=== PATIENT | female | born 1950 | race American Indian/Alaskan Native ===

== ENCOUNTER 2017-02-02 08:46 | Inpatient (IN) ==
[2017-02-02] MEDS ORDERED: Ipratropium/Albuterol Neb 3 ML IH ONE (08:53)
--- NOTE | 2017-02-02 08:54 | Emergency Department Note ---
Disposition Clinical Impression: Acute respiratory failure, Pleural effusion Disposition: Admitted As Inpatient Condition: Critical General Adult HPI - General Chief complaint: ED Shortness of Breath/Dyspnea Stated complaint: PRASHANT Time Seen by Provider: 02/02/17 08:52 - Related Data Home Medications Medication Instructions Recorded Confirmed Aspirin/Calcium Carbonate/Mag 325 mg PO DAILY 02/02/17 02/02/17 [Aspirin Buffered 325 mg Tab] GlipiZIDE [Glipizide] 10 mg PO BID 02/02/17 02/02/17 Lisinopril [Zestril] 10 mg PO DAILY 02/02/17 02/02/17 Metformin [Glucophage] 1,000 mg PO BID 02/02/17 02/02/17 Tramadol HCl [Ultram] 50 mg PO BID PRN 02/02/17 02/02/17 Allergies Allergy/AdvReac Type Severity Reaction Status Date / Time Rosiglitazone [From Avandia] Allergy Chest Pain Verified 02/02/17 09:08 Course Vital Signs Temperature 98.0 F 02/02/17 08:53 Pulse Rate 125 02/02/17 08:53 Respiratory Rate 28 02/02/17 08:53 Blood Pressure 144/95 02/02/17 08:53 O2 Sat by Pulse Oximetry 96 02/02/17 08:53 Temperature 98.0 F 02/02/17 08:53 Pulse Rate 114 02/02/17 11:38 Respiratory Rate 19 02/02/17 11:50 Blood Pressure 142/92 02/02/17 11:50 O2 Sat by Pulse Oximetry 94 L 02/02/17 11:38 Oxygen Delivery Oxygen Delivery Nasal Cannula Medical Decision Making - Lab Data Result diagrams: 02/02/17 09:27 02/02/17 09:27 Lab Results 02/02/17 02/02/17 02/02/17 Range/Units 09:27 09:27 09:27 WBC 11.9 H (4.3-11.1) K/mcL RBC 4.62 (3.82-4.97) M/mcL Hgb 14.1 (11.5-15.4) g/dL Hct 44.6 (35.3-44.9) % MCV 96.5 (83.0-100.0) fL MCH 30.5 (28.0-33.3) pg MCHC 31.6 (31.6-35.5) g/dL RDW 13.2 (11.5-14.5) % Plt Count 290 (140-400) K/mcL MPV 11.1 (9.4-12.4) fL Immature Gran % 0.4 (0-4) % Seg Neutrophils % 67.4 % Lymphocytes % 21.4 % Monocytes % 9.2 % Eosinophils % 0.8 % Basophils % 0.8 % Neutrophils # 8.0 (1.6-8.9) K/mcL Lymphocytes # 2.5 (0.6-4.6) K/mcL Monocytes # 1.1 (0.0-1.3) K/mcL Eosinophils # 0.1 (0.0-0.6) K/mcL Basophils # 0.1 (0.0-0.2) K/mcL PT 11.3 (9.4-12.1) Seconds INR 1.0 Sodium 139 (136-145) mEq/L Potassium 4.3 (3.5-4.5) mEq/L Chloride 99 (98-109) mEq/L Carbon Dioxide 26 (19-29) mEq/L BUN 7 (7-20) mg/dL Creatinine 0.71 (0.57-1.11) mg/dL Est GFR ( Amer) > 60 (> 60) Est GFR (Non-Af Amer) > 60 (> 60) BUN/Creatinine Ratio 10 (6-26) Glucose 291 H (70-99) mg/dL Calculated Osmolality 297 (280-300) Calcium 8.8 (8.6-10.8) mg/dL Total Bilirubin 0.6 (0.2-1.2) mg/dL AST 16 (5-34) Units/L ALT 13 (0-55) Units/L Alkaline Phosphatase 94 (38-126) Units/L Troponin I (0-0.03) ng/mL B-Natriuretic Peptide (0-100) pg/mL Serum Total Protein 8.2 (6.0-8.3) g/dL Albumin 3.3 L (3.5-5.0) g/dL Globulin 4.9 H (2.4-3.5) g/dL Albumin/Globulin Ratio 0.7 L (1.1-2.2) 02/02/17 02/02/17 Range/Units 09:27 09:27 WBC (4.3-11.1) K/mcL RBC (3.82-4.97) M/mcL Hgb (11.5-15.4) g/dL Hct (35.3-44.9) % MCV (83.0-100.0) fL MCH (28.0-33.3) pg MCHC (31.6-35.5) g/dL RDW (11.5-14.5) % Plt Count (140-400) K/mcL MPV (9.4-12.4) fL Immature Gran % (0-4) % Seg Neutrophils % % Lymphocytes % % Monocytes % % Eosinophils % % Basophils % % Neutrophils # (1.6-8.9) K/mcL Lymphocytes # (0.6-4.6) K/mcL Monocytes # (0.0-1.3) K/mcL Eosinophils # (0.0-0.6) K/mcL Basophils # (0.0-0.2) K/mcL PT (9.4-12.1) Seconds INR Sodium (136-145) mEq/L Potassium (3.5-4.5) mEq/L Chloride (98-109) mEq/L Carbon Dioxide (19-29) mEq/L BUN (7-20) mg/dL Creatinine (0.57-1.11) mg/dL Est GFR ( Amer) (> 60) Est GFR (Non-Af Amer) (> 60) BUN/Creatinine Ratio (6-26) Glucose (70-99) mg/dL Calculated Osmolality (280-300) Calcium (8.6-10.8) mg/dL Total Bilirubin (0.2-1.2) mg/dL AST (5-34) Units/L ALT (0-55) Units/L Alkaline Phosphatase (38-126) Units/L Troponin I 0.01 (0-0.03) ng/mL B-Natriuretic Peptide 98 (0-100) pg/mL Serum Total Protein (6.0-8.3) g/dL Albumin (3.5-5.0) g/dL Globulin (2.4-3.5) g/dL Albumin/Globulin Ratio (1.1-2.2) Critical Care Time Critical Care Time: Yes Total Critical Care Time: 45 Attestation: Patient presents dyspneic requiring IV nitroglycerin drip and BiPAP. Attestation Statement - Attestation Attestation: I examined this patient and my medical decision-making was reviewed with the OBJECT ORIENTED PROGRAMMER/PA/Advanced Practice Nurse/Resident Physician. I agree with the documented findings, disposition and treatment plan as described except to the extent set forth below. [id number] time provided Patient presents with increasing exertional and nonexertional dyspnea over the past 3 days. Nonproductive cough. No chest pain. No previous history of respiratory symptoms. The patient is visibly dyspneic, tachycardic, tachypneic on exam. Pulse ox in the mid 80s. Patient seen and evaluated in conjunction with the resident physician Dr. Rios
--- NOTE | 2017-02-02 09:02 | Emergency Department Note ---
Disposition Clinical Impression: Pleural effusion Acute respiratory failure Qualifiers: Respiratory failure complication: unspecified whether with hypoxia or hypercapnia Qualified Code(s): J96.00 - Acute respiratory failure, unspecified whether with hypoxia or hypercapnia Disposition: Admitted As Inpatient Condition: Critical SOB HPI - General Chief Complaint: ED Shortness of Breath/Dyspnea Stated Complaint: PRASHANT Time Seen by Provider: 02/02/17 08:52 Nursing Notes Reviewed: Yes Vital Signs Reviewed: Yes - History of Present Illness Mrs. Swenson, 66-year-old female, presents from home via EMS with chief complaint difficulty breathing. Onset 4 days ago and progressively worsening. Admits to nonproductive cough. Denies fever, chills, nausea, vomiting, productive cough. Denies any chest pain. PMH: Diabetes, hypertension. Remote breast cancer. Denies history of congestive heart failure. PSH: Right complete mastectomy. PCP: Dr. Diane - Related Data Home Medications Medication Instructions Recorded Confirmed Aspirin/Calcium Carbonate/Mag 325 mg PO DAILY 02/02/17 02/02/17 [Aspirin Buffered 325 mg Tab] GlipiZIDE [Glipizide] 10 mg PO BID 02/02/17 02/02/17 Lisinopril [Zestril] 10 mg PO DAILY 02/02/17 02/02/17 Metformin [Glucophage] 1,000 mg PO BID 02/02/17 02/02/17 Tramadol HCl [Ultram] 50 mg PO BID PRN 02/02/17 02/02/17 Allergies Allergy/AdvReac Type Severity Reaction Status Date / Time Rosiglitazone [From Avandia] Allergy Chest Pain Verified 02/02/17 09:08 All systems ED: reviewed and negative except as stated. Constitutional: Reports: weakness. Denies: fever, chills Cardiovascular: Denies: chest pain, palpitations Respiratory: Reports: cough, dyspnea. Denies: wheezes, hemoptysis, stridor Gastrointestinal: Denies: abdominal pain, nausea, vomiting, diarrhea Genitourinary: Denies: urgency, dysuria, frequency Musculoskeletal: Denies: back pain, neck pain Neurological: Reports: weakness. Denies: headache, numbness, paresthesias Physical Exam General: Patient is alert, oriented, and in acute rest for distress. She is single word conversational dyspnea with accessory muscle use and head bobbing. HEENT: No facial asymmetry. Head is normocephalic and atraumatic. PERRLA. Trachea midline. Cardiovascular: Heart regular rate and rhythm without clicks, rubs, gallops, or murmurs. No JVD. PMI nondisplaced. 1+ bilateral pitting edema. Respiratory: Symmetric chest rise with good respiratory effort. Bilateral breath sounds are rhonchorous without wheezing or crackles. Abdomen: Obese. Bowel sounds present normoactive x-4 quadrants. Abdomen is soft, nondistended, and nontender. Psych: Patient's affect is appropriate for situation. Course Course Narrative: Patient has no history of congestive heart failure, CAD, ACS, CAD, COPD. Differential includes PE versus pneumonia versus congestive heart failure versus COPD. Initially placed her on 4 L via nasal cannula. She remained tachycardic and a restaurant stress. Will place her on BiPAP and provide IV nitro drip and reassess. Patient's lab work is unremarkable; she does have mild leukocytosis however I believe this to be a stress response. Troponin and BNP are unremarkable. Chest x-ray concerning for pulmonary edema versus atypical pneumonia. The patient tolerated BiPAP quite well. Her work of breathing has improved substantially with BiPAP and nitroglycerin. Discussed the patient, her , and daughter at bedside for admission for continued respiratory management continue workup. They agreed. Spoke with the hospitalist, , who agrees to accept the patient. CTA chest does not show PE but is concerning for pulmonary effusion likely secondary to CHF. Chest CTA 02/02/17 08:53 IMPRESSION: 1. No evidence of pulmonary embolism. 2. Findings consistent with pulmonary edema. Moderate right and small left pleural effusions. D/ / 02/02/2017 11:38:34 Fior Olson MD / Rebecca Suarez Interpreting Provider: Fior Olson MD Chest X-Ray 02/02/17 08:53 IMPRESSION: Diffuse bilateral interstitial and airspace opacities. Findings could reflect pulmonary edema and/or atypical pneumonia. D/ / 02/02/2017 10:07:04 Fior Olson MD / Rebecca Suarez Interpreting Provider: Fior Olson MD Vital Signs Temperature 98.0 F 02/02/17 08:53 Pulse Rate 125 02/02/17 08:53 Respiratory Rate 28 02/02/17 08:53 Blood Pressure 144/95 02/02/17 08:53 O2 Sat by Pulse Oximetry 96 02/02/17 08:53 Temperature 98.0 F 02/02/17 08:53 Pulse Rate 114 02/02/17 11:38 Respiratory Rate 19 02/02/17 11:50 Blood Pressure 142/92 02/02/17 11:50 O2 Sat by Pulse Oximetry 94 L 02/02/17 11:38 Oxygen Delivery Oxygen Delivery Nasal Cannula Shortness of Breath/Dyspnea - Medical Records Medical records reviewed: Yes I reviewed the patient's medical records. - Lab Data Lab results reviewed: Yes I reviewed the patient's lab results. Result diagrams: 02/02/17 09:27 02/02/17 09:27 Lab Results 02/02/17 02/02/17 02/02/17 Range/Units 09:27 09:27 09:27 WBC 11.9 H (4.3-11.1) K/mcL RBC 4.62 (3.82-4.97) M/mcL Hgb 14.1 (11.5-15.4) g/dL Hct 44.6 (35.3-44.9) % MCV 96.5 (83.0-100.0) fL MCH 30.5 (28.0-33.3) pg MCHC 31.6 (31.6-35.5) g/dL RDW 13.2 (11.5-14.5) % Plt Count 290 (140-400) K/mcL MPV 11.1 (9.4-12.4) fL Immature Gran % 0.4 (0-4) % Seg Neutrophils % 67.4 % Lymphocytes % 21.4 % Monocytes % 9.2 % Eosinophils % 0.8 % Basophils % 0.8 % Neutrophils # 8.0 (1.6-8.9) K/mcL Lymphocytes # 2.5 (0.6-4.6) K/mcL Monocytes # 1.1 (0.0-1.3) K/mcL Eosinophils # 0.1 (0.0-0.6) K/mcL Basophils # 0.1 (0.0-0.2) K/mcL PT 11.3 (9.4-12.1) Seconds INR 1.0 Sodium 139 (136-145) mEq/L Potassium 4.3 (3.5-4.5) mEq/L Chloride 99 (98-109) mEq/L Carbon Dioxide 26 (19-29) mEq/L BUN 7 (7-20) mg/dL Creatinine 0.71 (0.57-1.11) mg/dL Est GFR ( Amer) > 60 (> 60) Est GFR (Non-Af Amer) > 60 (> 60) BUN/Creatinine Ratio 10 (6-26) Glucose 291 H (70-99) mg/dL Calculated Osmolality 297 (280-300) Calcium 8.8 (8.6-10.8) mg/dL Total Bilirubin 0.6 (0.2-1.2) mg/dL AST 16 (5-34) Units/L ALT 13 (0-55) Units/L Alkaline Phosphatase 94 (38-126) Units/L Troponin I (0-0.03) ng/mL B-Natriuretic Peptide (0-100) pg/mL Serum Total Protein 8.2 (6.0-8.3) g/dL Albumin 3.3 L (3.5-5.0) g/dL Globulin 4.9 H (2.4-3.5) g/dL Albumin/Globulin Ratio 0.7 L (1.1-2.2) 02/02/17 02/02/17 Range/Units 09:27 09:27 WBC (4.3-11.1) K/mcL RBC (3.82-4.97) M/mcL Hgb (11.5-15.4) g/dL Hct (35.3-44.9) % MCV (83.0-100.0) fL MCH (28.0-33.3) pg MCHC (31.6-35.5) g/dL RDW (11.5-14.5) % Plt Count (140-400) K/mcL MPV (9.4-12.4) fL Immature Gran % (0-4) % Seg Neutrophils % % Lymphocytes % % Monocytes % % Eosinophils % % Basophils % % Neutrophils # (1.6-8.9) K/mcL Lymphocytes # (0.6-4.6) K/mcL Monocytes # (0.0-1.3) K/mcL Eosinophils # (0.0-0.6) K/mcL Basophils # (0.0-0.2) K/mcL PT (9.4-12.1) Seconds INR Sodium (136-145) mEq/L Potassium (3.5-4.5) mEq/L Chloride (98-109) mEq/L Carbon Dioxide (19-29) mEq/L BUN (7-20) mg/dL Creatinine (0.57-1.11) mg/dL Est GFR ( Amer) (> 60) Est GFR (Non-Af Amer) (> 60) BUN/Creatinine Ratio (6-26) Glucose (70-99) mg/dL Calculated Osmolality (280-300) Calcium (8.6-10.8) mg/dL Total Bilirubin (0.2-1.2) mg/dL AST (5-34) Units/L ALT (0-55) Units/L Alkaline Phosphatase (38-126) Units/L Troponin I 0.01 (0-0.03) ng/mL B-Natriuretic Peptide 98 (0-100) pg/mL Serum Total Protein (6.0-8.3) g/dL Albumin (3.5-5.0) g/dL Globulin (2.4-3.5) g/dL Albumin/Globulin Ratio (1.1-2.2) - Radiology Data Radiology results reviewed: Yes I reviewed the patient's radiology results. - EKG Data EKG attestation: Yes I reviewed and interpreted this EKG. EKG results narrative: EKG dated 02 February at 09:01 interpreted as sinus tachycardia with a rate of 120. Normal intervals KS 172, QRS 109, QT/QTC 314/86. Left axis. Left anterior fascicular block. Nonspecific ST-T changes. No old EKG for comparison.
[2017-02-02] MEDS ORDERED: Nitroglycerin 25 MG/250 ML INFUS..BTL IVC ONE (09:03)
[2017-02-02] MEDS ORDERED: Furosemide 40 MG/4 ML VIAL IVP ONE (09:04)
[2017-02-02] MEDS ORDERED: Nitroglycerin 25 MG/250 ML INFUS..BTL IVC SCH (09:15)
[2017-02-02 09:36] LABS: Basophils # 0.1 K/mcL (0.0-0.2); Basophils % 0.8 %; Eosinophils # 0.1 K/mcL (0.0-0.6); Eosinophils % 0.8 %; Hematocrit 44.6 % (35.3-44.9); Hemoglobin 14.1 g/dL (11.5-15.4); Immature Granulocytes % 0.4 % (0-4); Lymphocytes # 2.5 K/mcL (0.6-4.6); Lymphocytes % 21.4 %; Mean Corpuscular HGB Conc 31.6 g/dL (31.6-35.5); Mean Corpuscular Hemoglobin 30.5 pg (28.0-33.3); Mean Corpuscular Volume 96.5 fL (83.0-100.0); Mean Platelet Volume 11.1 fL (9.4-12.4); Monocytes # 1.1 K/mcL (0.0-1.3); Monocytes % 9.2 %; Platelet Count 290 K/mcL (140-400); Red Blood Count 4.62 M/mcL (3.82-4.97); Red Cell Distribution Width 13.2 % (11.5-14.5); Segmented Neutrophils % 67.4 %
[2017-02-02 09:42] LABS: Prothrombin Time 11.3 Seconds (9.4-12.1)
[2017-02-02 09:50] LABS: Alanine Aminotransferase 13 Units/L (0-55); Albumin 3.3 g/dL (3.5-5.0); Albumin/Globulin Ratio 0.7 (1.1-2.2); Alkaline Phosphatase 94 Units/L (38-126); Aspartate Amino Transferase 16 Units/L (5-34); BUN/Creatinine Ratio 10 (6-26); Bilirubin,Total 0.6 mg/dL (0.2-1.2); Blood Urea Nitrogen 7 mg/dL (7-20); Calcium 8.8 mg/dL (8.6-10.8); Carbon Dioxide 26 mEq/L (19-29); Chloride 99 mEq/L (98-109); Globulin 4.9 g/dL (2.4-3.5); Glucose 291 mg/dL (70-99); Osmolality,Calculated 297 (280-300); Potassium 4.3 mEq/L (3.5-4.5); Sodium 139 mEq/L (136-145); Total Protein 8.2 g/dL (6.0-8.3); eGFR For African Americans > 60 (> 60); eGFR For Non-African Americans > 60 (> 60)
[2017-02-02] MEDS ORDERED: Naloxone 0.4 MG/ML INJ IVP PRN (12:16)
[2017-02-02] MEDS ORDERED: *HR* Morphine 2 MG/ML SYRINGE IVP PRN (12:16)
[2017-02-02] MEDS ORDERED: D5% in Water 1,000 ML IV PRN (12:30)
[2017-02-02] MEDS ORDERED: Dextrose Gel 15 GM PO PRN ×2 (12:30)
[2017-02-02] MEDS ORDERED: *HR* Dextrose 50 % in Water (Syg) 50 ML SYRINGE IVP PRN (12:30)
--- NOTE | 2017-02-02 12:34 | Internal Med History&Physical ---
Date of Encounter: 02/04/17 Time of Encounter: 12:33 Assessment and Plan (1) Acute respiratory failure Current visit: Yes Status: Acute Patient is in acute respiratory failure likely hypoxic: -Admitted as an inpatient -Intravenous furosemide 40 mg twice a day. Patient has a bilateral pleural effusion, elevated JVP, pedal edema, near-normal albumin: Justifies intravenous diuretics. -In the event if she worsens clinically, consider BiPAP -Blood cultures. -Intravenous levofloxacin: To cover atypicals which can be precipitating factor for congestive heart failure. -Close monitoring -Echocardiogram: To assess cardiac function, possibility of generalized/global hypokinesia: If it is present then consider myocarditis: We will get serial troponins -Diabetes: We will start home dose insulin, sliding scale and diabetes protocol -DVT prophylaxis: SCD Medical decision making: This patient has mild to moderate chance of worsening respiratory failure in spite of appropriate treatment. Qualifiers: Respiratory failure complication: unspecified whether with hypoxia or hypercapnia Qualified Code(s): J96.00 - Acute respiratory failure, unspecified whether with hypoxia or hypercapnia (2) Pleural effusion Current visit: Yes Status: Acute Etiology can be multifactorial: May need a interventional radiology to aspirate the effusion tomorrow Internal Medicine - H&P: HPI Chief complaint: SOB Admitted From: Emergency Dept Plans for Post Hospital Care: Home History of present illness: PCP: Dr Diane from [facility]. Brief PMH: Diabetes, hypertension. HPI: Mrs. Swenson, 66-year-old female, presents from home via EMS with chief complaint difficulty breathing. Onset 4 days ago and progressively worsening. Admits to nonproductive cough. Denies fever, chills, nausea, vomiting, productive cough. Denies any chest pain. No ongoing difficulty of breathing along with worsening cough and change in color of sputum made her call squad. The squad brought her to this hospital for further evaluation. Workup in the emergency room: Basic labs were drawn, chest x-ray was done. Chest x-ray showed vascular congestion. There is a mild leukocytosis. CTA was done and pulmonary embolism was ruled out. Reason for admission: Possible acute worsening congestive heart failure secondary to underlying infection. Patient needs intravenous antibiotics and close observation in view of possible BiPAP/intubation. This cannot be managed at home. Family history: Noncontributory Past Med Surg Social Fam HX - Past Medical History Medical history: diabetes, hypertension Psychiatric history: no psych history - Social History Smoking Status: Former smoker Smokeless Tobacco Status: No Alcohol use: none Drug use: none - Family History Mother Name: Maxwell Alicia Family Member Ethnicity: Non- Living Status: Age at : 86 Cause of : Cancer Hx Family Cardiac Disorders: Yes (CABG) Hx Family Cancer: Yes (UNKNOWN) Hx Family Endocrine Disorder: Yes (DIABETES) Internal Medicine - H&P: Meds Aspirin/Calcium Carbonate/Mag [Aspirin Buffered 325 mg Tab] 325 mg PO DAILY 04/16 [History] GlipiZIDE [Glipizide] 10 mg PO BID 02/02/17 [History] Lisinopril [Zestril] 10 mg PO DAILY 02/02/17 [History] Metformin [Glucophage] 1,000 mg PO BID 02/02/17 [History] Tramadol HCl [Ultram] 50 mg PO BID PRN 02/02/17 [History] Allergies Rosiglitazone [From Avandia] Allergy (Verified 02/02/17 09:08) Chest Pain All Systems PM: A 10-system review of systems was performed and is negative for pertinent findings except as documented above in the HPI. - Constitutional Constitutional: lethargy, malaise, weakness, no chills, no fever(s), no night sweats - EENT Eyes: no change in vision, no discharge, no pain, no photophobia Ears: no ear discharge, no ear pain, no tinnitus Nose, mouth and throat: no dysphagia, no nasal discharge, no neck pain, no sore throat - Cardiovascular Cardiovascular ROS IM: no chest pain, no diaphoresis, no dyspnea, no lightheadedness, no palpitations, no syncope - Respiratory Respiratory: cough, dyspnea, wheezing, excessive phlegm production, change in phlegm color - Gastrointestinal Gastrointestinal: no abdominal pain, no diarrhea, no hematemesis, no hematochezia, no melena, no nausea, no vomiting - Genitourinary Genitourinary: no change in urinary stream, no dysuria, no flank pain, no hematuria - Musculoskeletal Musculoskeletal ROS IM: no numbness, no tingling - Integumentary Integumentary IM: no rash, no unusual bruising - Neurological Neurological ROS: no confusion, no convulsions, no focal weakness, no numbness, no tingling, no tremor(s) - Hematologic/Lymphatic Hematologic/Lymphatic: no easy bruising - Constitutional Vitals: Temp Pulse Resp BP Pulse Ox 98.0 F 114 19 142/92 94 L 02/02/17 08:53 02/02/17 11:38 02/02/17 11:50 02/02/17 11:50 02/02/17 11:38 General appearance: Present: mild distress, A&O X 3, pleasant, answers questions appropriately - Head Head exam: Present: atraumatic, normocephalic - Eye Eye exam: Present: PERRL, conjuntiva pink, sclera anicteric Pupils: Present: PERRL - Neck Neck exam general surgery: Present: supple, trachea midline. Absent: lymphadenopathy - Respiratory Respiratory exam: Present: CTAB, rales, rhonchi, wheezes. Absent: accessory muscle use - Cardiovascular Cardiovascular exam: Present: RRR, +S1, +S2. Absent: diastolic murmur, gallop, rubs, systolic murmur - GI/Abdominal GI/Abdominal exam: Present: normal bowel sounds, soft, no peritoneal signs. Absent: distended, tenderness - Extremities Exam Extremities exam: Present: warm, radial pulses palpable and symetrical. Absent : calf tenderness, cyanotic, pedal edema - Neurological Exam Neurological exam: Present: CN II-XII intact, oriented X3, no focal deficits. Absent: pronater drift, facial droop, speech deficit - Skin Skin exam: Present: dry, intact Internal Med - H&P Results - Labs CBC & Chem 7: 02/04/17 07:30 02/04/17 07:30
[2017-02-02] MEDS ORDERED: Insulin LISPRO 300 UNITS/3 ML VIAL SQ SCH ×3 (13:05→16:30)
[2017-02-02] MEDS: Insulin LISPRO 300 UNITS/3 ML VIAL SQ SCH ×3 (13:45→22:41)
[2017-02-02] MEDS: Levofloxacin 750 MG/150 ML 750 MG/150 ML BAG IVPB SCH (15:12)
[2017-02-02] MEDS: Furosemide 40 MG/4 ML VIAL IVP SCH (17:28)
[2017-02-02 20:57] LABS: Bilirubin,Urine Negative (Negative); Blood,Urine Negative (Negative); Clarity,Urine Clear (Clear); Color,Urine Yellow (Yellow); Glucose,Urine (UA) Normal (Normal); Ketones,Urine Negative (Negative); Leukocyte Esterase,Urine Small (Negative); Nitrite,Urine Negative (Negative); Protein,Urine Negative (Neg-Trace); Specific Gravity,Urine 1.013 (1.010-1.025); Urobilinogen,Urine Normal (Normal)
[2017-02-02 20:59] LABS: Bacteria,Urine None Seen per hpf (None-Few); Hyaline Casts,Urine None Seen per lpf (None-Few); RBC,Urine 0-3 per hpf (0-3); Squamous Epithelial Cell,Urine Many per lpf (None-Few)
[2017-02-02] MEDS: *HR* GlipiZIDE 5 MG TABLET PO SCH (22:41)
[2017-02-03 07:50] LABS: Basophils # 0.1 K/mcL (0.0-0.2); Basophils % 0.7 %; Eosinophils # 0.1 K/mcL (0.0-0.6); Eosinophils % 1.2 %; Hemoglobin 12.7 g/dL (11.5-15.4); Immature Granulocytes % 0.4 % (0-4); Lymphocytes # 1.7 K/mcL (0.6-4.6); Lymphocytes % 20.3 %; Mean Corpuscular HGB Conc 33.4 g/dL (31.6-35.5); Mean Corpuscular Hemoglobin 31.8 pg (28.0-33.3); Mean Platelet Volume 11.5 fL (9.4-12.4); Monocytes # 0.7 K/mcL (0.0-1.3); Monocytes % 8.6 %; Neutrophils # 5.9 K/mcL (1.6-8.9); Platelet Count 250 K/mcL (140-400); Red Cell Distribution Width 13.3 % (11.5-14.5); Segmented Neutrophils % 68.8 %
[2017-02-03 08:13] LABS: Alanine Aminotransferase 9 Units/L (0-55); Albumin 2.8 g/dL (3.5-5.0); Albumin/Globulin Ratio 0.7 (1.1-2.2); Alkaline Phosphatase 69 Units/L (38-126); Aspartate Amino Transferase 18 Units/L (5-34); BUN/Creatinine Ratio 11 (6-26); Bilirubin,Total 0.8 mg/dL (0.2-1.2); Blood Urea Nitrogen 7 mg/dL (7-20); Calcium 8.1 mg/dL (8.6-10.8); Carbon Dioxide 29 mEq/L (19-29); Chloride 99 mEq/L (98-109); Chol/HDL Ratio 3.2 (0-4.9); Cholesterol 194 mg/dL (< 200); Globulin 4.1 g/dL (2.4-3.5); Glucose 167 mg/dL (70-99); HDL Cholesterol 60 mg/dL (40-59); LDL Cholesterol,Calculated 120 mg/dL (0-99); Magnesium 0.9 mg/dL (1.6-2.6); Osmolality,Calculated 290 (280-300); Potassium 3.6 mEq/L (3.5-4.5); Sodium 139 mEq/L (136-145); Total Protein 6.9 g/dL (6.0-8.3); Triglycerides 72 mg/dL (< 150); eGFR For African Americans > 60 (> 60); eGFR For Non-African Americans > 60 (> 60)
[2017-02-03] MEDS ORDERED: Magnesium Sulfate 2 GM in D5% in Water 100 ML IVPB ONE (08:29)
--- NOTE | 2017-02-03 08:51 | Internal Med Progress Note ---
<PacoDarian arnold - Last Filed: 02/03/17 09:24> Date of Encounter: 02/03/17 Time of Encounter: 08:45 - Assessment and plan (1) Acute respiratory failure Current Visit: Yes Status: Acute Assessment and plan: Patient appears to be doing better this morning. She is not currently oxygen dependent. DDx includes possible acute CHF, recurrent malignancy, infection CTA negative for PE, but showed moderate right and small left pleural effusions , pulmonary vascular congestion. CXR: diffuse bilateral interstitial airspace opacities, concern for pulmonary edema vs. atypical pneumonia. Plan: Blood cultures x2 pending. Oxygen as needed. EV echo pending continue lasix 40mg BID strict I/O BiPAP if clinical condition worsens. Levaquin day 1 Qualifiers: Respiratory failure complication: unspecified whether with hypoxia or hypercapnia Qualified Code(s): J96.00 - Acute respiratory failure, unspecified whether with hypoxia or hypercapnia (2) Pleural effusion Current Visit: Yes Status: Acute Assessment and plan: plan as above. (3) Diabetes Current Visit: Yes Status: Acute Assessment and plan: holding metformin and glipizide. Medium dose sliding scale insulin ACHS accuchecks. ADA diet. Qualifiers: Diabetes mellitus type: type 2 Diabetes mellitus complication status: with unspecified complications Diabetes mellitus assistant terminal manager insulin use: unspecified fci insulin use status Qualified Code(s): E11.8 - Type 2 diabetes mellitus with unspecified complications (4) Hypertension Current Visit: Yes Status: Acute Assessment and plan: Continue home med lisinopril, Qualifiers: Hypertension type: essential hypertension Qualified Code(s): I10 - Essential (primary) hypertension (5) Hx of breast cancer Current Visit: Yes Status: Acute Assessment and plan: S/P right mastectomy about 20 years ago. Patient had also received clifton-adjuvant chemotherapy as well. Patient states that ever since her surgery and chemo, she chose not to follow up with her oncologist or get mammograms. concern for possible recurrent/metastatic disease. continue to monitor. (6) DVT prophylaxis Current Visit: Yes Status: Acute Assessment and plan: Heparin SQ BID - Subjective Interval history: 66 year old female evaluated at bedside. She was comfortably sitting up in bed without oxygen on and eating her breakfast. Patient denies nausea, vomiting, diarrhea, fever, chills, shortness of breath. She denies dizziness. - Constitutional Vitals: Temp Pulse Resp BP Pulse Ox 98.3 F 112 16 122/70 95 02/03/17 05:11 02/03/17 05:11 02/03/17 05:11 02/03/17 05:11 02/03/17 05:11 General appearance: Present: A&O X 3, pleasant, answers questions appropriately - Head Head exam: Present: atraumatic, normocephalic - Neck Neck exam general surgery: Present: supple, trachea midline - Respiratory Respiratory exam: Present: rales Additional comments: rales present on lower lobes bilaterally - Cardiovascular Cardiovascular exam: Present: JVD, tachycardia - GI/Abdominal GI/Abdominal exam: Present: normal bowel sounds. Absent: guarding, tenderness Additional comments: obese, striae present. normal bowel sounds, non tender. - Extremities Exam Extremities exam: Present: warm. Absent: cyanotic Additional comments: trace edema present on lower extremities bilaterally. - Neurological Exam Neurological exam: Present: alert, oriented X3, no focal deficits. Absent: facial droop, speech deficit - Other Additional findings: right breast surgically removed from mastectomy 20 years ago. Internal Medicine: Result - Labs CBC & Chem 7: 02/03/17 06:42 02/03/17 06:42 Labs: Short CBC 02/03/17 Range/Units 06:42 WBC 8.6 (4.3-11.1) K/mcL Hgb 12.7 (11.5-15.4) g/dL Hct 38.0 (35.3-44.9) % Plt Count 250 (140-400) K/mcL Neutrophils # 5.9 (1.6-8.9) K/mcL BMP 02/03/17 06:42 Sodium 139 Potassium 3.6 Chloride 99 Carbon Dioxide 29 BUN 7 Creatinine 0.64 Glucose 167 H Calcium 8.1 L Cardiac Enzymes 02/02/17 02/02/17 Range/Units 16:02 22:05 Troponin I 0.03 0.03 (0-0.03) ng/mL Liver Function 02/03/17 Range/Units 06:42 Total Bilirubin 0.8 (0.2-1.2) mg/dL AST 18 (5-34) Units/L ALT 9 (0-55) Units/L Alkaline Phosphatase 69 (38-126) Units/L Albumin 2.8 L (3.5-5.0) g/dL Urine 02/02/17 Range/Units 20:37 Urine Color Yellow (Yellow) Urine Clarity Clear (Clear) Urine pH 7.0 (5.0-8.0) pH Units Ur Specific [place] 1.013 (1.010-1.025) Urine Protein Negative (Neg-Trace) mg/dL Urine Glucose (UA) Normal (Normal) mg/dL - ABG Interpretation ABG results: PT/INR, D-dimer PT 11.3 Seconds (9.4-12.1) 02/02/17 09:27 - VTE Documentation of Mechanical Device: Intermittent pneumatic compression device Consult Discharge Plan - Plan Referrals: Dawson Diane DO [Primary Care Provider] - <Devyn Sánchez H - Last Filed: 02/03/17 14:46> Date of Encounter: 02/03/17 - Constitutional Vitals: Temp Pulse Resp BP Pulse Ox 97.6 F 112 16 99/61 95 02/03/17 12:48 02/03/17 12:48 02/03/17 12:48 02/03/17 12:48 02/03/17 12:48 Internal Medicine: Result - Labs CBC & Chem 7: 02/03/17 06:42 02/03/17 06:42 Labs: Short CBC 02/03/17 Range/Units 06:42 WBC 8.6 (4.3-11.1) K/mcL Hgb 12.7 (11.5-15.4) g/dL Hct 38.0 (35.3-44.9) % Plt Count 250 (140-400) K/mcL Neutrophils # 5.9 (1.6-8.9) K/mcL BMP 02/03/17 06:42 Sodium 139 Potassium 3.6 Chloride 99 Carbon Dioxide 29 BUN 7 Creatinine 0.64 Glucose 167 H Calcium 8.1 L Cardiac Enzymes 02/02/17 02/02/17 Range/Units 16:02 22:05 Troponin I 0.03 0.03 (0-0.03) ng/mL Liver Function 02/03/17 Range/Units 06:42 Total Bilirubin 0.8 (0.2-1.2) mg/dL AST 18 (5-34) Units/L ALT 9 (0-55) Units/L Alkaline Phosphatase 69 (38-126) Units/L Albumin 2.8 L (3.5-5.0) g/dL Urine 02/02/17 Range/Units 20:37 Urine Color Yellow (Yellow) Urine Clarity Clear (Clear) Urine pH 7.0 (5.0-8.0) pH Units Ur Specific [place] 1.013 (1.010-1.025) Urine Protein Negative (Neg-Trace) mg/dL Urine Glucose (UA) Normal (Normal) mg/dL - ABG Interpretation ABG results: PT/INR, D-dimer PT 11.3 Seconds (9.4-12.1) 02/02/17 09:27 - Attending Attestation acute pulmonary edema with bilateral pleural effusion R>L likely 2ry to acute systoli CHF exacerbation. Lasix IV Consult Cardiology ECHO: EF 35% CMP ischemic vs non ichemis, consider cardiac cath and defibrillator in the future if EF not improving I examined this patient and my medical decision-making was reviewed with the PEDIATRIC ALLERGIST/PA/Advanced Practice Nurse/Resident Physician. I agree with the documented findings, disposition and treatment plan as described except to the extent set forth below.
[2017-02-03] MEDS ORDERED: traMADol 50 MG TABLET PO PRN (09:06)
[2017-02-03] MEDS: Aspirin Enteric Coated 325 MG Tablet PO SCH (09:13)
[2017-02-03] MEDS: Furosemide 40 MG/4 ML VIAL IVP SCH ×2 (09:13→16:52)
[2017-02-03] MEDS: Insulin LISPRO 300 UNITS/3 ML VIAL SQ SCH ×5 (09:17→21:14)
[2017-02-03] MEDS: *HR* Heparin 5,000 UNIT/ML VIAL SQ SCH ×2 (09:25→16:52)
--- NOTE | 2017-02-03 09:31 | ECHO - Doppler Report ---
Echocardiogram Name: Aracely Swenson Date of Study: 02/03/2017 Date: 1950 Ht: 65.0 in Medical Record#: [id number] Age: 66 Wt: 248.0 lb Gender: Female BSA: 2.17 Order #: [id number] Location: [facility] Room #: 2A22 Reading Physician: Shruti Juarez DO Bus Boy: Filomena Webb Ordering Physician: Dwain Shirley MD Primary Physician: Dawson Diane DO Indications: Congestive heart failure Impressions: LVEF 35%. Global LV systolic dysfunction. Indeterminate diastolic function. Normal right ventricular size and function. Mild-moderate mitral regurgitation. No pulmonary hypertension. Left Ventricular Wall Motion: Rest Echo Findings The apex, apical inferior, mid inferior, basal inferior, apical anterior, mid anterior, basal anterior, apical septal, mid inferior septal, basal inferior septal, apical lateral, mid anterior lateral, basal anterior lateral, basal anterior septal and basal inferior lateral hale were hypokinetic. The mid anterior septal and mid inferior lateral hale were not visualized. Findings: Study Quality * Technically sub-optimal due to body habitus. ECG Findings * Sinus tachycardia. Aortic Valve * No aortic regurgitation. * No aortic stenosis. * Not well visualized. Mitral Valve * Moderate mitral annular calcification * Mildly calcified mitral valve leaflets. * No mitral stenosis. * Mild-moderate mitral regurgitation. Tricuspid Valve * Tricuspid valve not well visualized. * Trace tricuspid regurgitation. Pulmonic Valve * Pulmonic valve is not well visualized. * No pulmonic stenosis. * No pulmonic regurgitation. Pulmonary Artery * Pulmonary artery not well visualized. Right Ventricle * Normal right ventricular structure and function. Right Atrium * Normal right atrial size. Left Atrium * Mildly dilated left atrium. Left Ventricle * Indeterminate diastolic function. * LVEF 35%. * Mildly dilated LV. Interatrial Septum * No evidence of PFO by color Doppler. IVC * The IVC is not well evaluated. Pericardium * There is no pericardial effusion present. Aorta * Not well visualized. History Hypertension Diabetes Family History of CAD Measurements: BP: 122/ 70 2D Normal Values RVIDd: 2.80 cm <2.7 cm IVSd: 1.00 cm 0.6 - 1.0 cm LVIDd: 5.6 cm 3.7 - 5.6 cm LVPWd: 1.40 cm 0.6 - 1.1 cm LVIDs: 4.10 cm 1.5 - 3.6 cm AO: 2.40 cm < 4.0 cm LA: 3.80 cm 2.0 - 4.0cm %FS: 14.60 cm >25 % LA volume: 38 Mitral Valve Peak Velocity 2.17 m/sec Mean Velocity:1.21 m/sec Peak Grad:19.00 mmHg Mean Grad:7.00 mmHg Pressure Time:31.00 msec Valve Area:7.10 cm2 Peak E:1.67 m/sec Peak E' Lat Drew:4.87 cm/s Peak E' Med Drew:7.31 cm/s E/E' Lat Ratio:34.3 E/E' Med Ratio:22.8 Tricuspid Valve TV Regurg Peak Grad: 22.00mmHg TV Regurg Peak Drew: 2.32m/sec Updated by Shruti Juarez on 02/03/2017 9:26:18 AM electronically signed on 02/03/2017 9:27:34 AM with status of Final Wall Motion [place]: 1=Normal, 2=Hypokinesis, 3=Akinesis, 4=Dyskinesis, 5=Aneurysmal, 6=Hyperkinetic, X=Not Visualized (Blank)=Missing
[2017-02-03] MEDS: *HR* GlipiZIDE 5 MG TABLET PO SCH (09:46)
[2017-02-03] MEDS: Levofloxacin 750 MG/150 ML 750 MG/150 ML BAG IVPB SCH (10:37)
--- NOTE | 2017-02-03 16:51 | Electrocardiograph Report ---
[place] [address] Test Date: 2017-02-02 Pat Name: Aracely Swenson Department: 105 Room: 2A22 Gender: F Div[employer] Professor: : 1950 Requested By: Devyn Sánchez Order Number: [id number] Reading MD: Guevara Roberson MD Measurements Intervals [place] Rate: 120 P: 31 NM: 172 QRS: -48 QRSD: 109 T: 96 QT: 314 QTc: 386 Interpretive Statements SINUS TACHYCARDIA with PAC LEFT ANTERIOR FASCICULAR BLOCK Poor R wave progression Electronically Signed On 02-03-2017 16:50:24 EST by Guevara Roberson MD
--- NOTE | 2017-02-03 16:52 | Cardiology Consult Note ---
Date of Encounter: 02/03/17 Time of Encounter: 16:49 Assessment and Plan (1) Cardiomyopathy Current Visit: Yes Status: Acute Newly diagnosed cardiomyopathy. LVEF 35%. Decompensated systolic heart failure. Symptoms improving with diuresis. Multiple risk factor for CAD. We discussed the R/B/A to a [facility]. Patient is agreeable. Plan to proceed in AM. Recommend continue lasix IV for now. Monitor Cr, daily weights, I/O. CHF education provided. Continue aspirin, ACEi therapy. Start low dose BB. Plan for [facility] tomorrow if clinical status continues to improve. Further recommendations to follow. Qualifiers: Cardiomyopathy type: unspecified Qualified Code(s): I42.9 - Cardiomyopathy , unspecified Discussion w patient/family: The assessment and plan as outlined above was discussed with the patient and/or family members who expressed understanding and agreement. All questions were answered. Thank you for involving us in the care of your patient. Please call with any questions. History of Present Illness Consult date: 02/03/17 Requesting physician: Devyn Sánchez Chief complaint: Dyspnea History of present illness: Ms. Swenson is a 66 year old female with a history of DM, HTN, and morbid obesity. Presents with 2-3 days of dyspnea. Occurs at rest, but worse with activity. No chest pain reported. Generally inactive. No prior cardiac issues - no echocardiogram or stress tests. CT - negative for pe, but did demonstrate bilateral effusions. Symptoms improved with diuretic therapy. Past Med Surg Social Fam HX - Past Medical History Medical history: diabetes, hypertension Psychiatric history: no psych history - Past Surgical History Surgical History: cholecystectomy - Social History Smoking Status: Former smoker Smokeless Tobacco Status: No Alcohol use: none Drug use: none - Family History Mother Name: Maxwell Alicia Family Member Ethnicity: Non- Living Status: Age at : 86 Cause of : Cancer Hx Family Cardiac Disorders: Yes (CABG) Hx Family Cancer: Yes (UNKNOWN) Hx Family Endocrine Disorder: Yes (DIABETES) Medications and Allergies Aspirin/Calcium Carbonate/Mag [Aspirin Buffered 325 mg Tab] 325 mg PO DAILY 04/16 [History] GlipiZIDE [Glipizide] 10 mg PO BID 02/02/17 [History] Lisinopril [Zestril] 10 mg PO DAILY 02/02/17 [History] Metformin [Glucophage] 1,000 mg PO BID 02/02/17 [History] Tramadol HCl [Ultram] 50 mg PO BID PRN 02/02/17 [History] Allergies Rosiglitazone [From Avandia] Allergy (Verified 02/02/17 09:08) Chest Pain All Systems Review: A 10-system review of systems was performed and is negative for pertinent findings except as documented above in the HPI. - Cardiovascular Cardiovascular: dyspnea at rest, dyspnea on exertion, orthopnea - Respiratory Respiratory: dyspnea Physical Examination General: Conversant, No Apparent Distress HEENT: Atraumatic, Normocephaly, Mucus Membranes Moist Neck: No JVD Cardiac: Reg Rate and Rhythm, Normal S1 and S2, No Murmur Lungs: Other (Mild basilar crackles. ) Neuro: Alert and responsive, No focal deficits noted Abdomen: Soft, Non-Tender, Other (Obese) Skin: No rashes noted on visualized skin Musculoskeletal: No Chest Wall Tenderness Extremities: No Clubbing, No Cyanosis, No Edema Results 02/03/17 06:42 02/03/17 06:42 Lab Results 02/02/17 02/03/17 02/03/17 22:05 06:42 06:42 WBC 8.6 Hgb 12.7 Hct 38.0 Plt Count 250 Sodium 139 Potassium 3.6 Chloride 99 Carbon Dioxide 29 BUN 7 Creatinine 0.64 Glucose 167 H Calcium 8.1 L Magnesium 0.9 L Total Bilirubin 0.8 AST 18 ALT 9 Alkaline Phosphatase 69 Troponin I 0.03 - Imaging and Cardiology Echo: report reviewed - EKG Interpretation EKG results cardiology: personally reviewed (Sinus tachycardia, PAC, LAFB.) Consult Discharge Plan - Plan Referrals: Dawson Diane DO [Primary Care Provider] -
[2017-02-03] MEDS: Magnesium Oxide 400 MG TABLET PO SCH (21:14)
[2017-02-04] MEDS: *HR* Heparin 5,000 UNIT/ML VIAL SQ SCH ×2 (05:13→17:19)
[2017-02-04] MEDS: Insulin LISPRO 300 UNITS/3 ML VIAL SQ SCH ×4 (07:35→21:25)
[2017-02-04 08:05] LABS: BUN/Creatinine Ratio 14 (6-26); Blood Urea Nitrogen 10 mg/dL (7-20); Calcium 8.2 mg/dL (8.6-10.8); Carbon Dioxide 27 mEq/L (19-29); Chloride 100 mEq/L (98-109); Glucose 217 mg/dL (70-99); Magnesium 1.2 mg/dL (1.6-2.6); Osmolality,Calculated 294 (280-300); Potassium 3.6 mEq/L (3.5-4.5); Sodium 139 mEq/L (136-145); eGFR For African Americans > 60 (> 60); eGFR For Non-African Americans > 60 (> 60)
[2017-02-04] MEDS: Levofloxacin 750 MG/150 ML 750 MG/150 ML BAG IVPB SCH (08:05)
[2017-02-04] MEDS: Furosemide 40 MG/4 ML VIAL IVP SCH (08:06)
[2017-02-04] MEDS: Aspirin Enteric Coated 325 MG Tablet PO SCH (08:06)
[2017-02-04] MEDS: Magnesium Oxide 400 MG TABLET PO SCH ×2 (08:06→21:26)
--- NOTE | 2017-02-04 08:07 | Internal Med Progress Note ---
Addendum entered and electronically signed by Basil Araujo DO 14:45: * Please disregard recent diagnosis of leukemia and consultation to oncology as these were recorded in error Original Note: <Basil Araujo - Last Filed: 02/04/17 14:20> Date of Encounter: 02/04/17 Time of Encounter: 08:07 - Assessment and plan (1) Acute respiratory failure Current Visit: Yes Status: Acute Assessment and plan: 02/04/17 Significant clinical improvement ECHO showed LVEF 35%, global LV systolic dysfunction, mild-moderate mitral regurgitation Left heart catheter today showed nonischemic cardiomyopathy + moderate nonobstructive CAD Continue diuresis Day #3 of Levaquin 02/03/17 Patient appears to be doing better this morning. She is not currently oxygen dependent. DDx includes possible acute CHF, recurrent malignancy, infection CTA negative for PE, but showed moderate right and small left pleural effusions , pulmonary vascular congestion. CXR: diffuse bilateral interstitial airspace opacities, concern for pulmonary edema vs. atypical pneumonia. Plan: Blood cultures x2 pending. Oxygen as needed. EV echo pending continue lasix 40mg BID strict I/O BiPAP if clinical condition worsens. Levaquin day 1 Qualifiers: Respiratory failure complication: unspecified whether with hypoxia or hypercapnia Qualified Code(s): J96.00 - Acute respiratory failure, unspecified whether with hypoxia or hypercapnia (2) Pleural effusion Current Visit: Yes Status: Acute Assessment and plan: (3) Diabetes Current Visit: Yes Status: Acute Assessment and plan: 02/04/17 Blood glucose expectedly elevated, patient on steroids Continue medium SSRI and ACHS checks 02/03/17 holding metformin and glipizide. Medium dose sliding scale insulin ACHS accuchecks. ADA diet. Qualifiers: Diabetes mellitus type: type 2 Diabetes mellitus complication status: with unspecified complications Diabetes mellitus terminal operator insulin use: unspecified terminal operator insulin use status Qualified Code(s): E11.8 - Type 2 diabetes mellitus with unspecified complications (4) Hypertension Current Visit: Yes Status: Acute Assessment and plan: Blood pressure is stable Continue home med lisinopril, metoprolol Qualifiers: Hypertension type: essential hypertension Qualified Code(s): I10 - Essential (primary) hypertension (5) Hx of breast cancer Current Visit: Yes Status: Acute Assessment and plan: 02/04/17 Patient relates recent diagnosis of leukemia Appreciate oncology recommendations 02/03/17 S/P right mastectomy about 20 years ago. Patient had also received clifton-adjuvant chemotherapy as well. Patient states that ever since her surgery and chemo, she chose not to follow up with her oncologist or get mammograms. concern for possible recurrent/metastatic disease. continue to monitor. (6) DVT prophylaxis Current Visit: Yes Status: Acute Assessment and plan: Heparin SQ BID - Subjective Interval history: Patient in no acute distress. Denies chest pain, abdominal pain or any new complaints. Her dyspnea has significantly improved - Constitutional Vitals: Temp Pulse Resp BP Pulse Ox 98 F 106 16 117/69 96 02/04/17 07:31 02/04/17 07:31 02/04/17 07:31 02/04/17 07:31 02/04/17 07:31 General appearance: Present: A&O X 3, pleasant, answers questions appropriately - Head Head exam: Present: atraumatic, normocephalic - Eye Eye exam: Present: PERRL, conjuntiva pink, sclera anicteric Pupils: Present: PERRL - Neck Neck exam general surgery: Present: supple, trachea midline. Absent: lymphadenopathy - Respiratory Respiratory exam: Present: decreased breath sounds, rales, wheezes. Absent: accessory muscle use, respiratory distress, rhonchi - Cardiovascular Cardiovascular exam: Present: JVD, tachycardia - GI/Abdominal GI/Abdominal exam: Present: normal bowel sounds, soft, no peritoneal signs. Absent: distended, tenderness - Extremities Exam Extremities exam: Present: warm, radial pulses palpable and symetrical. Absent : calf tenderness, cyanotic, pedal edema - Neurological Exam Neurological exam: Present: CN II-XII intact, oriented X3, no focal deficits. Absent: pronater drift, facial droop, speech deficit - Skin Skin exam: Present: dry, intact Internal Medicine: Result - Labs CBC & Chem 7: 02/04/17 07:30 02/04/17 07:30 Labs: BMP 02/03/17 06:42 Sodium 139 Potassium 3.6 Chloride 99 Carbon Dioxide 29 BUN 7 Creatinine 0.64 Glucose 167 H Calcium 8.1 L Liver Function 02/03/17 Range/Units 06:42 Total Bilirubin 0.8 (0.2-1.2) mg/dL AST 18 (5-34) Units/L ALT 9 (0-55) Units/L Alkaline Phosphatase 69 (38-126) Units/L Albumin 2.8 L (3.5-5.0) g/dL - ABG Interpretation ABG results: PT/INR, D-dimer PT 11.3 Seconds (9.4-12.1) 02/02/17 09:27 - VTE Documentation of Mechanical Device: Intermittent pneumatic compression device Consult Discharge Plan - Plan Referrals: Dawson Diane DO [Primary Care Provider] - Sam Echeverria DO [Partnered Physician] - 02/18/17 12:15 pm <Dwain Shirley P - Last Filed: 02/04/17 17:49> - Assessment and plan (1) Acute respiratory failure Current Visit: Yes Status: Acute Qualifiers: Respiratory failure complication: unspecified whether with hypoxia or hypercapnia Qualified Code(s): J96.00 - Acute respiratory failure, unspecified whether with hypoxia or hypercapnia (2) Pleural effusion Current Visit: Yes Status: Acute - Constitutional Vitals: Temp Pulse Resp BP Pulse Ox 97.8 F 104 19 108/74 94 L 02/04/17 16:09 02/04/17 16:09 02/04/17 16:09 02/04/17 16:09 02/04/17 16:09 Internal Medicine: Result - Labs CBC & Chem 7: 02/04/17 07:30 02/04/17 07:30 Labs: Short CBC 02/04/17 Range/Units 07:30 WBC 9.8 (4.3-11.1) K/mcL Hgb 12.4 (11.5-15.4) g/dL Hct 38.4 (35.3-44.9) % Plt Count 273 (140-400) K/mcL Neutrophils # 7.0 (1.6-8.9) K/mcL BMP 02/04/17 07:30 Sodium 139 Potassium 3.6 Chloride 100 Carbon Dioxide 27 BUN 10 Creatinine 0.70 Glucose 217 H Calcium 8.2 L - ABG Interpretation ABG results: PT/INR, D-dimer PT 11.3 Seconds (9.4-12.1) 02/02/17 09:27 - Attending Attestation I examined this patient and my medical decision-making was reviewed with the MANAGEMENT SUPERVISOR/PA/Advanced Practice Nurse/Resident Physician. I agree with the documented findings, disposition and treatment plan as described except to the extent set forth below. LHC non obstructive CAD Low EF secondary to ?viral etilogy ?jt Rolle f/u with cardiology in 1-2 weeks repeat ECHO in 6 weeks
[2017-02-04 08:22] LABS: Basophils # 0.1 K/mcL (0.0-0.2); Basophils % 0.7 %; Eosinophils # 0.1 K/mcL (0.0-0.6); Eosinophils % 0.6 %; Hematocrit 38.4 % (35.3-44.9); Hemoglobin 12.4 g/dL (11.5-15.4); Immature Granulocytes % 0.4 % (0-4); Lymphocytes # 1.6 K/mcL (0.6-4.6); Lymphocytes % 16.1 %; Mean Corpuscular HGB Conc 32.3 g/dL (31.6-35.5); Mean Corpuscular Hemoglobin 30.7 pg (28.0-33.3); Mean Platelet Volume 11.2 fL (9.4-12.4); Monocytes # 1.1 K/mcL (0.0-1.3); Platelet Count 273 K/mcL (140-400); Red Blood Count 4.04 M/mcL (3.82-4.97); Red Cell Distribution Width 13.3 % (11.5-14.5); Segmented Neutrophils % 71.2 %
[2017-02-04] MEDS ORDERED: Metoprolol XL (24 HR) Succ 25 MG TAB.ER.24H PO SCH (09:00)
[2017-02-04] MEDS ORDERED: Magnesium Sulfate 2 GM in D5% in Water 100 ML IVPB ONE (09:19)
[2017-02-04] MEDS ORDERED: Heparin 1,000 UNITS/500 mL NS 500 ML ONE (09:20)
[2017-02-04] MEDS ORDERED: 0.9 % Sodium Chloride 2,000 ML ONE (09:20)
[2017-02-04] MEDS ORDERED: *HR* Heparin 10,000 UNIT/10 ML VIAL ONE (09:20)
--- NOTE | 2017-02-04 09:20 | Cardiology Progress Note ---
Date of Encounter: 02/04/17 Time of Encounter: 09:18 Assessment and Plan (1) Cardiomyopathy Current Visit: Yes Status: Acute Newly diagnosed cardiomyopathy. LVEF 35%. Decompensated systolic heart failure - symptoms improved. Multiple risk factor for CAD. We discussed the R/B/A to a [facility]. Patient remains agreeable - scheduled for today. Change Lasix to 40 mg by mouth daily. CHF education provided. Continue aspirin, ACEi therapy, and beta óscar therapy. May need statin therapy, but will wait for cardiac catheterization results. Qualifiers: Cardiomyopathy type: unspecified Qualified Code(s): I42.9 - Cardiomyopathy , unspecified Discussion w patient/family: The assessment and plan as outlined above was discussed with the patient and/or family members who expressed understanding and agreement. All questions were answered. Thank you for involving us in the care of your patient. Please call with any questions. Subjective Principal diagnosis: Cardiomyopathy, decompensated heart failure Interval history: Overall, Aracely has done well overnight. Reports breathing has improved. No orthopnea described. No chest pain reported. Objective Vital Signs, Last 4 Hours Temp Pulse Resp BP Pulse Ox 02/04/17 07:31 98 F 106 16 117/69 96 02/04/17 05:18 98.1 F 122 19 120/84 94 L General: Conversant, No Apparent Distress HEENT: Atraumatic, Normocephaly, Mucus Membranes Moist Neck: No JVD, Normal carotid pulses Cardiac: Reg Rate and Rhythm, Normal S1 and S2, No Murmur, Other (Tachycardia noted) Lungs: Normal Breath Sounds, No Wheeze, Rales, Rhonchi Neuro: Alert and responsive, No focal deficits noted Abdomen: Soft, Non-Tender, Other (Obese) Skin: No rashes noted on visualized skin Musculoskeletal: No Chest Wall Tenderness Extremities: No Clubbing, No Cyanosis Results 02/04/17 07:30 02/04/17 07:30 Lab Results 02/04/17 02/04/17 07:30 07:30 WBC 9.8 Hgb 12.4 Hct 38.4 Plt Count 273 Sodium 139 Potassium 3.6 Chloride 100 Carbon Dioxide 27 BUN 10 Creatinine 0.70 Glucose 217 H Calcium 8.2 L Magnesium 1.2 L ITS Impressions Chest CTA 02/02/17 08:53 IMPRESSION: 1. No evidence of pulmonary embolism. 2. Findings consistent with pulmonary edema. Moderate right and small left pleural effusions. D/ / 02/02/2017 11:38:34 Fior Olson MD / Rebecca Suarez Interpreting Provider: Fior Olson MD Chest X-Ray 02/02/17 08:53 Active Medications Aspirin (Aspirin Ec) 325 mg PO DAILY VALERIE Stop: 08/05/17 09:01 Last Admin: 02/04/17 08:06 Dose: 325 mg Dextrose/Water (Dextrose 50% (Syg)) 25 ml IVP AD PRN PRN Reason: Hypoglycemia Stop: 08/04/17 12:31 Docusate Sodium (Colace) 100 mg PO BID PRN PRN Reason: Constipation Stop: 08/04/17 12:17 Furosemide (Lasix) 40 mg IVP BIDDIURETIC VALERIE Stop: 08/04/17 17:01 Last Admin: 02/04/17 08:06 Dose: 40 mg Glucagon (Glucagen) 1 mg IM ONCE PRN PRN Reason: Hypoglycemia Stop: 08/04/17 12:31 Glucose (Gluctose) 15 gm PO ONCE PRN PRN Reason: Hypoglycemia Stop: 08/04/17 12:31 Glucose (Gluctose) 30 gm PO ONCE PRN PRN Reason: Hypoglycemia Stop: 08/04/17 12:31 Heparin Sodium (Porcine) (Heparin) 5,000 unit SQ Q12HCO VALERIE Stop: 08/05/17 09:01 Last Admin: 02/04/17 05:13 Dose: 5,000 unit Dextrose (Dextrose 5%) 1,000 mls @ 100 mls/hr IV CONT PRN PRN Reason: HYPOGLYCEMIA Stop: 08/04/17 12:31 Levofloxacin/Dextrose (Levaquin 750mg/150 Ml) 750 mg in 150 mls @ 100 mls/hr IVPB DAILY VALERIE PRN Reason: Protocol Stop: 08/04/17 13:01 Last Admin: 02/04/17 08:05 Dose: 100 mls/hr Insulin Human Lispro (Humalog) 0 units SQ TIDAC VALERIE PRN Reason: Protocol Stop: 08/05/17 11:31 Last Admin: 02/04/17 07:35 Dose: Not Given Insulin Human Lispro (Humalog) 0 units SQ HS VALERIE PRN Reason: Protocol Stop: 08/05/17 21:01 Last Admin: 02/03/17 21:14 Dose: 3 units Lisinopril (Zestril) 10 mg PO DAILY VALERIE PRN Reason: Protocol Stop: 08/05/17 09:01 Last Admin: 02/04/17 08:06 Dose: 10 mg Magnesium Oxide (Mag-Ox) 400 mg PO BID VALERIE PRN Reason: Protocol Stop: 08/05/17 21:01 Last Admin: 02/04/17 08:06 Dose: 400 mg Metoprolol Succinate (Toprol Xl) 25 mg PO DAILY [facility] Stop: 08/06/17 09:01 Last Admin: 02/04/17 08:06 Dose: 25 mg Naloxone HCl (Narcan) 0.4 mg IVP Q2MIN PRN PRN Reason: Opioid Reversal Stop: 08/04/17 12:17 Tramadol HCl (Ultram) 50 mg PO Q6HR PRN PRN Reason: Pain Stop: 08/05/17 09:07 IMPRESSION: Diffuse bilateral interstitial and airspace opacities. Findings could reflect pulmonary edema and/or atypical pneumonia. D/ / 02/02/2017 10:07:04 Fior Olson MD / Rebecca Suarez Interpreting Provider: Fior Olson MD - Imaging and Cardiology Chest Xray: report reviewed Echo: report reviewed - EKG Interpretation EKG results cardiology: personally reviewed (Sinus tachycardia, possible left anterior fascicular block.) - VTE Documentation of Mechanical Device: Intermittent pneumatic compression device Consult Discharge Plan - Plan Referrals: Dawson Diane DO [Primary Care Provider] -
[2017-02-04] MEDS ORDERED: Verapamil 5 MG/2 ML VIAL ONE (09:28)
[2017-02-04] MEDS ORDERED: Nitroglycerin 1,000 MCG/10 ML VIAL IV ONE (09:28)
[2017-02-04] MEDS ORDERED: *HR* Midazolam HCl 2 MG/2 ML VIAL ONE ×2 (10:28→11:00)
[2017-02-04] MEDS ORDERED: *HR* FentaNYL (PF) 100 MCG/2 ML VIAL ONE (10:29)
--- NOTE | 2017-02-04 10:51 | Pre-Sedation Evaluation ---
Pre-sedation evaluation - Pre-sedation checklist Date of procedure: 02/04/17 Procedure: heart cath Recent Vitals: Last Vital Signs Temp 98 F 02/04/17 07:31 Pulse 106 02/04/17 07:31 Resp 16 02/04/17 07:31 BP 117/69 02/04/17 07:31 Pulse Ox 96 02/04/17 07:31 H&P (including ROS) documented in medical record: Yes Previous reaction to sedatives/anesthetics: No Dietary Status: NPO after Midnight Dentition: dentures removed ASA Classification *see protocol: CLASS II-Mild systemic disease Plan of Care: Pt appropriate candidate for procedure/moderate/conscious sedation , Risks/benefits of procedure/sedation discussed w/ patient/family
--- NOTE | 2017-02-04 11:34 | Invasive Diagnostic Lab Proc ---
Name: Aracely Swenson Date of Study: 02/04/2017 Date: 1950 Ht: 65.0in Medical Record#: [id number] Age: 66 Wt: 246.92lb Gender: Female BSA: 2.16 Order #: [id number] BMI: 41.14 Physicians Procedure Physician: Guevara Roberson MD, FACC Referring MD: Referring MD: Staff Name Position Time In Emily Leyva RT 10:29 AM Miranda Sanchez RT (R) Scrub 10:30 AM Jerica De Los Santos RN Nurse 10:30 AM Marcelino Smith RN Cooler Room Worker 10:30 AM Indications Indication Cardiomyopathy Procedures Performed Procedure L HRT ARTERY/VENTRICLE ANGIO Pre-Procedure Checklist Informed consent is complete signed and on chart. H\\T\\P is on chart. ID band is on and ID verified with patient. Patient NPO for procedure The procedure was described for the patient and questions were answered. Blood Pressure: 117/69 ECG is on chart. Plan of Care Patient will tolerate the procedure without complications. Adequate level of comfort will be maintained. Hemodynamics will remain stable Patient will recover from procedure without complications. Respiratory function will be maintained. Cardiac rhythm will remain stable. Patient temperature will be maintained. Patient and/or family have verbalized understanding of the procedure. Patient Education Chief Complaint/Reason for Test: Cardiac Cath Developmental Category: Geriatric (65+ years) Developmentally Appropriate for Age: Yes Learning Barriers: None Education Needs: Procedure Education Method: Verbal Information Taught: Cardiac Cath Educational Evaluation: Able to repeat information Intravenous Access Time IV Size Location DC'd Fluid/Drip Rate Units RN 09:28 AM 18g 1 /" Patent On Arrival Lt Antecubital Allergies Rosiglitazone Vital Signs Time BP (mmHg) HR (bpm) O2 Sat. RR (bpm) LOC 09:29 AM 117 / 69 106 96 % 16 10:35 AM / % 5 = Fully awake and oriented or at pre-proc level 10:36 AM / % 4 = Oriented but drowsy 10:51 AM / % 4 = Oriented but drowsy 10:33 AM 134 / 81 117 91 % 18 10:38 AM 136 / 82 117 100 % 18 10:44 AM 127 / 77 98 100 % 10:48 AM 128 / 73 116 100 % 10:53 AM 132 / 84 114 100 % 20 10:58 AM 139 / 81 116 100 % 11:03 AM 135 / 79 114 100 % 11:08 AM 139 / 83 112 100 % 11:13 AM 139 / 78 112 100 % 13 11:19 AM 125 / 49 % Procedural Medications Time Medication Dose Units Method Given By 10:33 AM Oxygen 2 L/min nasal cannula Marcelino Smith RN 10:33 AM Versed 2 mg Intravenous Marcelino Smith RN 10:33 AM Fentanyl 50 mcg Intravenous Marcelino Smith RN 10:53 AM Lidocaine 2% 20 ml Subcutaneous Guevara Roberson MD, FACC 11:01 AM Versed 1 mg Intravenous Marcelino Smith RN 11:01 AM Fentanyl 25 mcg Intravenous Marcelino Smith RN ASA Classification: CLASS II- Mild systemic disease (i.e. well-controlled diabetes, hypertension, asthma, cigarette smoking) Daisha Score Preprocedure Postprocedure Activity 2- Moves 4 extremities sustained head lift Activity 2- Moves 4 extremities sustained head lift Circulation 2- SBP +/= 20 points of pre-anesthetic level Circulation 2- SBP +/= 20 points of pre-anesthetic level Consciousness 2- Awake and alert oriented x 3 Consciousness 2- Awake and alert oriented x 3 O2 Saturation 2- Able to maintain O2 satruation of 92% on room air O2 Saturation 2- Able to maintain O2 satruation of 92% on room air Respiratory 2- Able to deep breathe and cough well Respiratory 2- Able to deep breathe and cough well Total Score 10 Total Score 10 Contrast Agent: Isovue Diagnostic Contrast: 53 ml Total Contrast: 53 ml Fluoro Dose: 260 mGy Procedure Log Time Note Enter By 09:41 AM CathStat 10:29 AM Pt arrived to computer lab para professional 2 at 10:29 [facility] 10:30 AM Emily Leyva RT Position: Monitor Time in: 10:29 dspell 10:30 AM Miranda Sanchez RT (R) Position: Scrub Time in: 10:30 dspell 10:30 AM Jerica De Los Santos RN Position: Nurse Time in: 10:30 dspell 10:30 AM Marcelino Smith RN Position: Cooler Room Worker Time in: 10:30 dspell 10:30 AM Patient charges- Angio tray pack, Navilyst 3mm J, Pulse Oximetry and ACIST tubing and transducer [email or web address] 10:30 AM IV Supplies used: J loop Angio Cath. [email or web address] 10:30 AM Case Delayed No [email or web address] 10:30 AM Physician arrived 10:30 [email or web address] 10:30 AM ASA Class CLASS II- Mild systemic disease (i.e. well-controlled diabetes, hypertension, asthma, cigarette smoking) [email or web address] 10:30 AM Meet and greet completed [email or web address] 10:30 AM Sign in performed according to hospital policy. [email or web address] 10:30 AM Procedure start 10:30 dspell 10:31 AM Case Start 10:31 AM Vitals capture started with the following parameters, Patient=Adult, Interval=5 min, Initial Ypjpdkpk=887 mmHg, Deflation Rate=5 mmHg, Cuff placed on Left Arm 10:32 AM Vitals capture started with the following parameters, Patient=Adult, Interval=5 min, Initial Tphvsywo=774 mmHg, Deflation Rate=5 mmHg, Cuff placed on Left Arm 10:33 AM PU=886 bpm, JUNV=063/81 mmhg, SpO2=91.0 %, Resp=18 B/min, Comment=st 10:33 AM Time: 10:33 Oxygen on at 2 L/min per nasal cannula by Marcelino Smith RN 10:33 AM Time: 10:33 Versed 2 mg Intravenous Given by Marcelino Smith RN 10:33 AM Time: 10:33 Fentanyl 50 mcg Intravenous Given by Marcelino Smith RN 10:35 AM Time: 10:35 Patient comfortable and pain free: Yes kk 10:36 AM Time: 10:35LOC: 5 = Fully awake and oriented or at pre-proc level [email or web address] 10:36 AM Clinical Presentation: No symptoms, no angina [email or web address] 10:38 AM OF=433 bpm, UXHZ=857/82 mmhg, KwX9=602.0 %, Resp=18 B/min, Comment=st 10:43 AM Hair removed from procedure site in procedure lab using clippers. Bilateral groin prepped with Chloraprep by Stacey Escobar (R), safety strap applied then patient was draped. Skin intact. [email or web address] 10:44 AM HR=98 bpm, HGZS=745/77 mmhg, PcK3=905.0 %, Comment=st 10:46 AM Pressure channel 1 zeroed. 10:48 AM UD=914 bpm, ZOKL=391/73 mmhg, JbN8=559.0 % 10:51 AM Time: 10:36LOC: 4 = Oriented but drowsy 10:51 AM Time: 10:35 Patient comfortable and pain free: Yes 10:53 AM Time out performed according to hospital policy 10:53 AM XK=921 bpm, ZPXT=688/84 mmhg, OiI4=777.0 %, Resp=20 B/min 10:55 AM Time: 10:53 20 ml Lidocaine 2% to right groin Subcutaneous Given by Guevara Roberson MD, [facility] 10:58 AM YD=756 bpm, TRBX=376/81 mmhg, FsE0=481.0 % 11:00 AM Access obtained by percutaneous puncture. 5Fr 10cm Terumo [place] sheath placed in right Femoral artery. [id number] [facility] 11:00 AM 5Fr FL 4 catheter inserted over the wire [facility] 11:00 AM wire removed [facility] 11: AM Time: 11: Versed 1 mg Intravenous Given by Marcelino Smith RN [facility] 11: AM Time: 11: Fentanyl 25 mcg Intravenous Given by Marcelino Smith RN [facility] 11:01 AM Recorded Pressure: Ao, VT=224, Condition=Condition 1 (Aorta) Ao 120/86/102 11:01 AM LCA angiography performed in multiple views. 11:02 AM Catheter removed [facility] 11:03 AM IM=317 bpm, ZNJU=347/79 mmhg, GyB7=386.0 % 11:03 AM 5Fr FR 4 catheter inserted over the wire [facility] 11:04 AM wire removed [facility] 11:04 AM Recorded Pressure: Ao, FO=508, Condition=Condition 1 (Aorta) Ao 145/99/119 11:05 AM Catheter removed [facility] 11:05 AM 5Fr Pigtail catheter inserted over the wire [facility] 11:05 Catheter selectively placed in left ventricle [facility] 11:06 AM Time: 10:51 Patient comfortable and pain free: Yes 11:06 AM Time: 10:51LOC: 4 = Oriented but drowsy [facility] 11:06 AM Pressure channel 1 zeroed. 11:06 AM Recorded Pressure: LV, AF=656, Condition=Condition 1 (Left Ventricle) LV 128/4/15 11:06 AM Bolus angiogram of left Ventricle complete: 12 ml/sec for a total of 24 mls [email or web address] 11:07 AM Recorded Pressure: LV, Ao, OH=758, Condition=Condition 1 (Left Ventricle) LV 128/13/13, (Aorta) Ao 98/31/62 11:07 AM wire and catheter removed [email or web address] 11:08 AM Coronary Dominance: right [email or web address] 11:08 AM YA=790 bpm, SKXE=836/83 mmhg, HoO2=344.0 % 11:08 AM Bolus angiogram of right Femoral complete: 2 ml/sec for a total of 4 mls [email or web address] 11:10 AM Lesion found in Mid LAD. Pre Stenosis: 15 Pre [place] Flow: [email or web address] 11:11 AM Lesion found in Mid Circumflex. Pre Stenosis: 70 Pre [place] Flow: [email or web address] 11:11 AM Lesion found in Distal RCA. Pre Stenosis: 15 Pre [place] Flow: [email or web address] 11:11 AM Left Main Coronary Artery with 0% stenosis [email or web address] 11:11 AM Proximal Left Anterior Descending Coronary Artery with 0% stenosis. If graft is supplying this territory, 0 % stenosis. [email or web address] 11:11 AM Mid/Distal Left Anterior Descending Coronary Artery and diagonal branches with 15% stenosis. If graft is supplying this area, 0 % stenosis [email or web address] 11:11 AM Circumflex, Obtuse Marginal, Left Posterior Descending, and Left Posterolateral Coronary Arteries with 70 % stenosis. If graft is supplying this area, 0 % stenosis [email or web address] 11:11 AM Right Coronary, Right Posterior Descending Arteries with Right Posterolateral and Acute Marginal branches with 15 % stenosis. If graft is supplying this area, 0 % stenosis [email or web address] 11:11 AM Ramus with 0% stenosis. If graft is supplying this area, 0 % stenosis [email or web address] 11:11 AM Procedure completed at 11:11 [email or web address] 11:12 AM Sign out completed: Radiation Dose 260.03 mGy Fluoro Time: 1.1 Isovue 370 - 200ml contrast 53 ml given by Guevara Roberson MD, [facility]. Complications: NoneCardiac Rehab Consult needed: Yes Confirmed administered medications: Yes [email or web address] 11:12 AM Isovue 370 - 200ml,1 Bottle(s) used. [email or web address] 11:13 AM Arterial sheath pulled, Mynx closure device used and was Successful [id number] S/N. [email or web address] 11:13 AM Post ECG Sinus Tachycardia [email or web address] 11:13 AM GI=694 bpm, NCKQ=017/78 mmhg, UsD0=588.0 %, Resp=13 B/min 11:13 AM Post Blood Pressure 139/78 [email or web address] 11:13 AM 11:13 Post Pulses Bilateral DP \\T\\ PT 2+ [email or web address] 11:14 AM Information taught Cardiac Cath and Mynx kkallner 11:15 AM Education needs Procedure, Plan of Care, and Responsibilities of Patient in Care [email or web address] 11:15 AM Learning barriers :None [email or web address] 11:15 AM Education Methods Verbal [email or web address] 11:15 AM Education evaluation Able to repeat information [email or web address] 11:15 AM Site status No bleeding/hematoma - Rt Groin as reported by Miranda Sanchez RT (R) at 11:15 [email or web address] 11:15 AM Opsite applied kkallner 11:15 AM Plavix, Effient or Brilinta given No [email or web address] 11:16 AM Delay to floor No [email or web address] 11:16 AM Patient out of room: 11:16 [email or web address] 11:16 AM Family placed in consult room. [email or web address] 11:16 AM Complications: None [email or web address] 11:16 AM Fluoro Time: 1.1 [email or web address] 11:16 AM Isovue 370 - 200ml contrast 53 ml given by Guevara Roberson MD, [facility]. [email or web address] 11:16 AM Radiation Dose 260.03 mGy [email or web address] 11:19 AM IBCI=770/49 mmhg 11:20 AM Report given to Maya AGUILERA Pt taken to 2A Room #22. 11:20 [email or web address] Complications Complication None None Hemodynamics Pressures Site Systolic/A Wave Diastolic/V Wave Mean AO 120 86 102 AO 145 99 119 LV 128 4 15 LV 128 13 13 AO 98 31 62 Post Procedure Information Blood Pressure: 139/78 mmHg Rhythm: Sinus Tachycardia Post procedural instructions were given Closure Device Time Device Success/Fail 02/04/2017 11:16:00 AM MynxGrip Successful Site Checks Time Location Status Staff Sheath In? Note 11:15 AM Rt Groin No bleeding/hematoma Miranda Sanchez RT (R) Pulses Time Site Pre-Procedure Post-Procedure Note 02/04/2017 9:28:00 AM Bilateral DP \\T\\ PT 2+ 02/04/2017 9:28:00 AM Bilateral radial 2+ 11:13:00 AM Bilateral DP \\T\\ PT 2+ Updated by RT Karlie (R) on 02/04/2017 11:27:25 AM electronically signed on 02/04/2017 11:27:58 AM with status of Final
--- NOTE | 2017-02-04 11:49 | Event Note ---
Date of Encounter: 02/04/17 Time of Encounter: 11:41 - Cardiology Event Note LHC showed moderate non-obstructive CAD. Low EF not proportionate to CAD. Non- ischemic cardiomyopathy. Add statin therapy. BB increased this morning. Lasix changed to oral. Close out-pt f/u recommended. F/u will be made in 1-2 weeks by [facility]. Signing off. Please call with questions.
[2017-02-04] MEDS: Metoprolol XL (24 HR) Succ 25 MG TAB.ER.24H PO SCH (21:26)
[2017-02-05] MEDS: *HR* Heparin 5,000 UNIT/ML VIAL SQ SCH (06:33)
--- NOTE | 2017-02-05 06:50 | Discharge Summary ---
<GayleBasil pickard - Last Filed: 02/05/17 06:40> Date of Encounter: 02/05/17 Time of Encounter: 06:40 - Discharge Diagnosis (1) Acute respiratory failure Priority: Primary Status: Acute Qualifiers: Respiratory failure complication: unspecified whether with hypoxia or hypercapnia Qualified Code(s): J96.00 - Acute respiratory failure, unspecified whether with hypoxia or hypercapnia (2) Pleural effusion Priority: Secondary Status: Acute (3) Diabetes Priority: Secondary Status: Acute Qualifiers: Diabetes mellitus type: type 2 Diabetes mellitus complication status: with unspecified complications Diabetes mellitus bed bug exterminator insulin use: unspecified bed bug exterminator insulin use status Qualified Code(s): E11.8 - Type 2 diabetes mellitus with unspecified complications (4) Hypertension Priority: Secondary Status: Acute Qualifiers: Hypertension type: essential hypertension Qualified Code(s): I10 - Essential (primary) hypertension (5) Hx of breast cancer Priority: Secondary Status: Acute (6) DVT prophylaxis Priority: Secondary Status: Acute - Discharge Medications Prescriptions: Atorvastatin [Lipitor] 40 mg PO HS #30 tablet Magnesium Oxide [Mag-Ox] 400 mg PO BID #30 tablet Metoprolol XL (24 HR) Succ [Toprol Xl] 25 mg PO BID #30 tab.er.24h Tramadol HCl [Ultram] 50 mg PO BID PRN #20 tablet PRN Reason: Pain Home Medications: Aspirin/Calcium Carbonate/Mag [Aspirin Buffered 325 mg Tab] 325 mg PO DAILY 04/16 [History] GlipiZIDE [Glipizide] 10 mg PO BID 02/02/17 [History] Lisinopril [Zestril] 10 mg PO DAILY 02/02/17 [History] Metformin [Glucophage] 1,000 mg PO BID 02/02/17 [History] Atorvastatin [Lipitor] 40 mg PO HS #30 tablet 02/05/17 [Rx] Magnesium Oxide [Mag-Ox] 400 mg PO BID #30 tablet 02/05/17 [Rx] Metoprolol XL (24 HR) Succ [Toprol Xl] 25 mg PO BID #30 tab.er.24h 02/05/17 [Rx] Tramadol HCl [Ultram] 50 mg PO BID PRN #20 tablet 02/05/17 [Rx] Allergies/Adverse Reactions: Allergies Rosiglitazone [From Avandia] Allergy (Verified 02/02/17 09:08) Chest Pain Procedures/tests Complete & Pending: Procedures Performed prior 72 hours Category Date Time Status Left Heart Cath [CL Cardiac Catheterization] [CL] Multimedia Specialist 02/03/17 17:07 Ordered Routine ECG 12 lead ECG [ECG] Routine Y 02/02/17 09:01 Completed Date of admission: 02/02/17 15:52 Primary care physician: Dawson Diane Consults: 02/03/17 15:26 Consult to Cardiology [CONS] Routine Comment: Consulting Provider: Cardiology Fani Reason for Consult: new onset CHF, LVEF 35% Call Completed: Yes Discharging clinician: Basil Araujo Anticipated date of discharge: 02/05/17 - Patient Status Disposition: Home, Self-Care Condition: Fair Functional capacity at discharge: independent ambulation - Discharge Instructions Instructions: Metoprolol (By mouth), Tramadol (By mouth), Atorvastatin (By mouth), Magnesium Oxide (By mouth), Diabetes Mellitus Type 2 in Adults (DC) Follow Up With: Dawson Diane DO [Primary Care Provider] - 02/10/17 11:00 am Sam Echeverria DO [Partnered Physician] - 02/18/17 12:15 pm - Diet and Activity Activity: increase activity as tolerated Diet: diabetic diet Hospital course: Ms. Swenson is a 66 year old female with past medical history of hypertension , breast cancer, type 2 diabetes who presented to the ED 3/5 complaining of dyspnea at rest for the prior 3 days and a nonproductive cough. She required BiPAP in emergency department to maintain adequate oxygenation. She had a mild leukocytosis. Chest x-ray showed diffuse bilateral interstitial and airspace opacities reflecting pulmonary edema and/or atypical pneumonia. She also had small bilateral pleural effusions. A CT angiogram was performed to rule out PE and this was negative. Patient was given Lasix and IV Levaquin to cover for atypicals thought to be possibly precipitating CHF. She had an echocardiogram which showed LVEF of 35%, left ventricular systolic dysfunction, and mild- moderate mitral regurgitation. She also underwent heart catheterization which revealed nonischemic cardiomyopathy and moderate nonobstructive CAD. [facility] would like her to follow-up in their office 1-2 weeks following discharge. She was tachycardic during her hospital stay and was started on a beta óscar. Based on her age, history of type 2 diabetes, and ASCVD 10 year risk around 10% I would also recommend she start high intensity statin. Follow- up with PCM approximately 1 week following discharge to discuss continued therapy - Time Spent with Patient Total time spent providing and/or coordinating discharge services: Greater than 30 minutes - Constitutional Vitals: Temp Pulse Resp BP Pulse Ox 97.8 F 112 16 151/84 97 02/05/17 04:48 02/05/17 04:48 02/05/17 04:48 02/05/17 04:48 02/05/17 04:48 General appearance: Present: A&O X 3, pleasant, answers questions appropriately - Head Head exam: Present: atraumatic, normocephalic - Eye Eye exam: Present: PERRL, conjuntiva pink, sclera anicteric Pupils: Present: PERRL - Neck Neck exam general surgery: Present: supple, trachea midline. Absent: lymphadenopathy - Respiratory Respiratory exam: Present: CTAB. Absent: accessory muscle use, rales, rhonchi, wheezes - Cardiovascular Cardiovascular exam: Present: RRR, +S1, +S2. Absent: diastolic murmur, gallop, rubs, systolic murmur - GI/Abdominal GI/Abdominal exam: Present: normal bowel sounds, soft, no peritoneal signs. Absent: distended, tenderness - Extremities Exam Extremities exam: Present: warm, radial pulses palpable and symetrical. Absent : calf tenderness, cyanotic, pedal edema - Neurological Exam Neurological exam: Present: CN II-XII intact, oriented X3, no focal deficits. Absent: pronater drift, facial droop, speech deficit - Skin Skin exam: Present: dry, intact - VTE Documentation of Mechanical Device: Intermittent pneumatic compression device <Dwain Shirley P - Last Filed: 02/05/17 18:34> - Discharge Diagnosis (1) Acute respiratory failure Status: Acute Qualifiers: Respiratory failure complication: unspecified whether with hypoxia or hypercapnia Qualified Code(s): J96.00 - Acute respiratory failure, unspecified whether with hypoxia or hypercapnia (2) Pleural effusion Status: Acute Procedures/tests Complete & Pending: Procedures Performed prior 72 hours Category Date Time Status Left Heart Cath [CL Cardiac Catheterization] [CL] Multimedia Specialist 02/03/17 17:07 Ordered Routine Date of admission: 02/02/17 15:52 Primary care physician: Dawson Diane Consults: 02/03/17 15:26 Consult to Cardiology [CONS] Routine Comment: Consulting Provider: Cardiology Fani Reason for Consult: new onset CHF, LVEF 35% Call Completed: Yes Hospital course: Ms. Swenson is a 66 year old female - Time Spent with Patient Total time spent providing and/or coordinating discharge services: - Constitutional Vitals: Temp Pulse Resp BP Pulse Ox 97.5 F L 110 16 133/87 98 02/05/17 07:24 02/05/17 07:24 02/05/17 07:24 02/05/17 07:24 02/05/17 07:24 - Attending Attestation I examined this patient and my medical decision-making was reviewed with the GOVERNMENT PROPERTY INSPECTOR/PA/Advanced Practice Nurse/Resident Physician. I agree with the documented findings, disposition and treatment plan as described except to the extent set forth below.
[2017-02-05 07:06] LABS: BUN/Creatinine Ratio 20 (6-26); Blood Urea Nitrogen 13 mg/dL (7-20); Calcium 8.2 mg/dL (8.6-10.8); Carbon Dioxide 24 mEq/L (19-29); Chloride 99 mEq/L (98-109); Glucose 230 mg/dL (70-99); Osmolality,Calculated 287 (280-300); Potassium 3.5 mEq/L (3.5-4.5); Sodium 135 mEq/L (136-145); eGFR For African Americans > 60 (> 60); eGFR For Non-African Americans > 60 (> 60)
[2017-02-05 07:20] LABS: Basophils # 0.1 K/mcL (0.0-0.2); Eosinophils # 0.1 K/mcL (0.0-0.6); Eosinophils % 1.6 %; Hematocrit 39.5 % (35.3-44.9); Hemoglobin 12.7 g/dL (11.5-15.4); Immature Granulocytes % 0.3 % (0-4); Lymphocytes # 1.3 K/mcL (0.6-4.6); Lymphocytes % 15.4 %; Mean Corpuscular HGB Conc 32.2 g/dL (31.6-35.5); Mean Corpuscular Hemoglobin 30.5 pg (28.0-33.3); Mean Platelet Volume 11.9 fL (9.4-12.4); Monocytes # 0.9 K/mcL (0.0-1.3); Monocytes % 10.4 %; Neutrophils # 6.1 K/mcL (1.6-8.9); Platelet Count 227 K/mcL (140-400); Red Blood Count 4.16 M/mcL (3.82-4.97); Red Cell Distribution Width 13.4 % (11.5-14.5); Segmented Neutrophils % 71.3 %
[2017-02-05 07:29] VITALS: BP 133/87
[2017-02-05] MEDS: Insulin LISPRO 300 UNITS/3 ML VIAL SQ SCH (08:02)
[2017-02-05] MEDS: Magnesium Oxide 400 MG TABLET PO SCH (08:03)
[2017-02-05] MEDS: Aspirin Enteric Coated 325 MG Tablet PO SCH (08:03)
[2017-02-05] MEDS: Metoprolol XL (24 HR) Succ 25 MG TAB.ER.24H PO SCH (08:04)
[2017-02-05] MEDS: Levofloxacin 750 MG/150 ML 750 MG/150 ML BAG IVPB SCH (08:04)
[2017-02-05] MEDS ORDERED: Furosemide 40 MG TABLET PO SCH (09:00)
--- NOTE | 2017-02-10 11:11 | Invasive Diagnostic Lab ---
Name: Aracely Swenson Date of Study: 02/04/2017 Date: 1950 Ht: 165.0 cm /65.0 in Medical Record#: [id number] Age: 66 Wt: 112. kg / 246.92 lb Account/Order#: [id number] Gender: Female BSA: 2.16 Order #: [id number] Fluoro Dose: 260 mGy BMI: 41.14 Procedure Physician: Guevara Roberson MD, FACC Referring MD: Referring MD: Procedures Performed: LEFT HEART CATH Indications: Cardiomyopathy Impressions: The left ventricle is dilated and has abnormal contractility EF 30% - primarily nonischemic cardiomyopathy Patient has diabetic heart disease Recommendations: Optimal medical therapy of patient's disease. Aggressive risk factor modification. History/Risk Factors: Pleural effusion DVT hx of Breast CA resp failure Diabetes Hypertension Procedure Access obtained in the right Femoral artery by percutaneous puncture Complications: None, None Contrast: Isovue 53ml Closure Device: MynxGrip Hemodynamics: Pressures Site Systolic/ A Wave Diastolic/ V Wave End Diastolic/ Mean HR AO 120 86 102 115 AO 145 99 119 113 LV 128 4 15 117 LV 128 13 13 120 AO 98 31 62 106 LV Ventriculography Ejection Method: LV Gram Ejection Fraction: 30% Wall Motion: RUSH Anterobasal Mild Hypokinesis Anterolateral Mild Hypokinesis Apical: Severe Hypokinesis Inferoapical Severe Hypokinesis Inferobasal Severe Hypokinesis Coronary Dominance: right Lesion Findings/Interventions * Left Main Coronary Artery The LMCA is angiographically free of disease. * Left Anterior Descending There is a 15% stenosis in the Mid LAD. The distal LAD is small in size. * Circumflex There is a 65% stenosis in the Mid Circumflex. Distal vessel is small in size. * Right Coronary Artery There is a 15% stenosis in the Distal RCA. Updated by RT Karlie (R) on 02/04/2017 11:26:37 AM Guevara Roberson MD, FACC electronically signed on 02/10/2017 11:06:48 AM with status of Final
== END 2017-02-05 10:56 | disposition home or self-care (01) | DRG 286 ==
LOC: EMEROO 08:46 → 2ANU 08:46 → SUATTDRO 15:52
PROVIDERS: ADMIT Internal Medicine; ATTEND Internal Medicine

== ENCOUNTER 2019-09-14 16:33 | Inpatient (IN) ==
[2019-09-14] MEDS ORDERED: *HR* OxyCODONE Immed Rel 5 MG TABLET PO PRN ×2 (18:43)
[2019-09-14] MEDS ORDERED: Naloxone 0.4 MG/ML INJ IVP PRN (23:19)
[2019-09-14] MEDS ORDERED: Dextrose Gel 15 GM/37.5 ML TUBE PO PRN ×2 (23:26)
[2019-09-14] MEDS ORDERED: *HR* Dextrose 50 % in Water (Syg) 50 ML SYRINGE IVP PRN (23:26)
[2019-09-14] MEDS ORDERED: D5% in Water 1,000 ML IVC PRN (23:26)
[2019-09-15] MEDS: Insulin LISPRO 300 UNITS/3 ML VIAL SQ SCH ×5 (01:42→17:29)
[2019-09-15 07:22] LABS: Basophils % 0.4 %; Eosinophils % 0.2 %; Hematocrit 33.8 % (35.3-44.9); Hemoglobin 10.8 g/dL (11.5-15.4); Immature Granulocytes % 0.5 % (0-4); Lymphocytes # 1.6 K/mcL (0.6-4.6); Mean Corpuscular Hemoglobin 30.3 pg (28.0-33.3); Mean Corpuscular Volume 94.7 fL (83.0-100.0); Mean Platelet Volume 11.3 fL (9.4-12.4); Monocytes % 10.2 %; Neutrophils # 7.1 K/mcL (1.6-8.9); Platelet Count 220 K/mcL (140-400); Red Blood Count 3.57 M/mcL (3.82-4.97); Red Cell Distribution Width 13.3 % (11.5-14.5); Segmented Neutrophils % 72.7 %; White Blood Count 9.8 K/mcL (4.3-11.1)
[2019-09-15 07:40] LABS: BUN/Creatinine Ratio 20 (6-26); Blood Urea Nitrogen 14 mg/dL (8-23); Calcium 8.8 mg/dL (8.6-10.3); Carbon Dioxide 30 mEq/L (23-29); Chloride 98 mEq/L (98-107); Glucose 177 mg/dL (70-105); Osmolality,Calculated 287 (280-300); Potassium 3.5 mEq/L (3.5-5.1); Sodium 136 mEq/L (136-145); eGFR For African Americans > 60 (> 60); eGFR For Non-African Americans > 60 (> 60)
[2019-09-15] MEDS: Furosemide 40 MG TABLET PO SCH (17:28)
[2019-09-16 04:47] LABS: Basophils # 0.1 K/mcL (0.0-0.2); Eosinophils # 0.1 K/mcL (0.0-0.6); Eosinophils % 0.7 %; Hematocrit 32.5 % (35.3-44.9); Hemoglobin 10.9 g/dL (11.5-15.4); Immature Granulocytes % 0.6 % (0-4); Lymphocytes # 1.9 K/mcL (0.6-4.6); Mean Corpuscular HGB Conc 33.5 g/dL (31.6-35.5); Mean Corpuscular Hemoglobin 32.8 pg (28.0-33.3); Mean Corpuscular Volume 97.9 fL (83.0-100.0); Mean Platelet Volume 11.4 fL (9.4-12.4); Monocytes # 1.3 K/mcL (0.0-1.3); Monocytes % 12.1 %; Neutrophils # 7.1 K/mcL (1.6-8.9); Platelet Count 201 K/mcL (140-400); Red Blood Count 3.32 M/mcL (3.82-4.97); Red Cell Distribution Width 13.4 % (11.5-14.5); Segmented Neutrophils % 67.6 %; White Blood Count 10.5 K/mcL (4.3-11.1)
[2019-09-16 05:05] LABS: BUN/Creatinine Ratio 20 (6-26); Blood Urea Nitrogen 13 mg/dL (8-23); Calcium 8.7 mg/dL (8.6-10.3); Carbon Dioxide 28 mEq/L (23-29); Chloride 97 mEq/L (98-107); Glucose 208 mg/dL (70-105); Osmolality,Calculated 284 (280-300); Potassium 3.7 mEq/L (3.5-5.1); Sodium 134 mEq/L (136-145); eGFR For African Americans > 60 (> 60); eGFR For Non-African Americans > 60 (> 60)
[2019-09-16] MEDS ORDERED: Metoprolol XL (24 HR) Succ 25 MG TAB.ER.24H PO SCH (07:00)
[2019-09-16] MEDS ORDERED: *HR* FentaNYL (PF) 100 MCG/2 ML VIAL ONE (07:15)
[2019-09-16] MEDS ORDERED: Dexamethasone 4 MG/ML VIAL ONE (07:15)
[2019-09-16] MEDS ORDERED: *HR* Succinylcholine 200 MG/10 ML VIAL IVP ONE (07:15)
[2019-09-16] MEDS ORDERED: Lidocaine -MPF 2% 2 ML VIAL ONE (07:15)
[2019-09-16] MEDS ORDERED: *HR* Midazolam HCl 2 MG/2 ML VIAL ONE (07:15)
[2019-09-16] MEDS ORDERED: *HR* Rocuronium Bromide 50 MG/5 ML VIAL ONE (07:15)
[2019-09-16] MEDS ORDERED: *HR* PHENYLEPHRINE 1,000 MCG/10 ML SYRINGE IVP ONE (07:15)
[2019-09-16] MEDS ORDERED: Ondansetron 4 MG/2 ML VIAL ONE (07:15)
[2019-09-16] MEDS ORDERED: *HR* Propofol 200 MG/20 ML VIAL IVP ONE (07:15)
[2019-09-16] MEDS ORDERED: Lidocaine HCL 4 ML Topical Solution (Laryng-O-Jet Kit Sterile Pak) TP ONE (07:18)
[2019-09-16] MEDS ORDERED: *HR* Etomidate 40 MG/20 ML VIAL IVP ONE (07:19)
[2019-09-16] MEDS ORDERED: Heparin 1,000 UNITS/500 mL 500 ML ONE (07:31)
[2019-09-16] MEDS: Insulin LISPRO 300 UNITS/3 ML VIAL SQ SCH ×4 (07:41→20:19)
[2019-09-16] MEDS ORDERED: *HR* FentaNYL (PF) 100 MCG/2 ML VIAL IVP PRN ×2 (08:09→09:58)
[2019-09-16] MEDS ORDERED: Ondansetron 4 MG/2 ML VIAL IVP ONE ×2 (08:09→09:58)
[2019-09-16] MEDS ORDERED: *HR* Promethazine 25 MG/ML VIAL IVP PRN ×2 (08:09→09:58)
[2019-09-16] MEDS ORDERED: Acetaminophen IV 1,000 MG/100 ML INFUS..BTL ONE (08:35)
[2019-09-16] MEDS ORDERED: Metoprolol XL (24 HR) Succ 50 MG TAB.ER.24H PO SCH (09:00)
[2019-09-16] MEDS ORDERED: CeFAZolin Syr 2,000MG/20 ML 2,000 MG/20 ML SYRINGE IVPB ONE (09:45)
[2019-09-16] MEDS ORDERED: *HR* Dextrose 50 % in Water (Syg) 50 ML SYRINGE IVP PRN (09:58)
[2019-09-16] MEDS ORDERED: Dextrose Gel 15 GM/37.5 ML TUBE PO PRN ×2 (09:58)
[2019-09-16] MEDS ORDERED: Naloxone 0.4 MG/ML INJ IVP PRN (09:58)
[2019-09-16] MEDS ORDERED: D5% in Water 1,000 ML IVC PRN (09:58)
[2019-09-16] MEDS: Aspirin Enteric Coated 325 MG Tablet PO SCH (11:07)
[2019-09-16] MEDS: Furosemide 40 MG TABLET PO SCH (15:52)
[2019-09-17 05:09] LABS: Basophils % 0.2 %; Eosinophils % 0.1 %; Hematocrit 28.4 % (35.3-44.9); Hemoglobin 9.7 g/dL (11.5-15.4); Immature Granulocytes % 0.5 % (0-4); Lymphocytes # 1.2 K/mcL (0.6-4.6); Lymphocytes % 9.7 %; Mean Corpuscular HGB Conc 34.2 g/dL (31.6-35.5); Mean Corpuscular Hemoglobin 32.3 pg (28.0-33.3); Mean Corpuscular Volume 94.7 fL (83.0-100.0); Mean Platelet Volume 11.9 fL (9.4-12.4); Monocytes # 1.6 K/mcL (0.0-1.3); Monocytes % 12.4 %; Neutrophils # 9.8 K/mcL (1.6-8.9); Platelet Count 208 K/mcL (140-400); Red Cell Distribution Width 13.1 % (11.5-14.5); Segmented Neutrophils % 77.1 %; White Blood Count 12.8 K/mcL (4.3-11.1)
[2019-09-17 05:28] LABS: BUN/Creatinine Ratio 20 (6-26); Blood Urea Nitrogen 16 mg/dL (8-23); Calcium 8.6 mg/dL (8.6-10.3); Carbon Dioxide 30 mEq/L (23-29); Chloride 94 mEq/L (98-107); Glucose 268 mg/dL (70-105); Osmolality,Calculated 287 (280-300); Potassium 4.2 mEq/L (3.5-5.1); Sodium 133 mEq/L (136-145); eGFR For African Americans > 60 (> 60); eGFR For Non-African Americans > 60 (> 60)
[2019-09-17] MEDS: Furosemide 40 MG TABLET PO SCH ×2 (08:59→17:47)
[2019-09-17] MEDS: Aspirin Enteric Coated 325 MG Tablet PO SCH (08:59)
[2019-09-17] MEDS: Insulin LISPRO 300 UNITS/3 ML VIAL SQ SCH ×4 (08:59→20:56)
[2019-09-17] MEDS: Metoprolol XL (24 HR) Succ 25 MG TAB.ER.24H PO SCH (08:59)
[2019-09-18] MEDS: Furosemide 40 MG TABLET PO SCH ×2 (00:21→09:17)
[2019-09-18 05:23] LABS: Basophils # 0.1 K/mcL (0.0-0.2); Basophils % 0.6 %; Eosinophils # 0.1 K/mcL (0.0-0.6); Eosinophils % 0.5 %; Hematocrit 26.6 % (35.3-44.9); Hemoglobin 9.3 g/dL (11.5-15.4); Immature Granulocytes % 0.7 % (0-4); Lymphocytes # 1.7 K/mcL (0.6-4.6); Lymphocytes % 15.7 %; Mean Corpuscular Hemoglobin 32.9 pg (28.0-33.3); Mean Platelet Volume 12.1 fL (9.4-12.4); Monocytes # 1.4 K/mcL (0.0-1.3); Monocytes % 12.7 %; Neutrophils # 7.6 K/mcL (1.6-8.9); Platelet Count 223 K/mcL (140-400); Red Blood Count 2.83 M/mcL (3.82-4.97); Red Cell Distribution Width 13.2 % (11.5-14.5); Segmented Neutrophils % 69.8 %; White Blood Count 10.9 K/mcL (4.3-11.1)
[2019-09-18] MEDS: Metoprolol XL (24 HR) Succ 25 MG TAB.ER.24H PO SCH (09:17)
[2019-09-18] MEDS: Insulin LISPRO 300 UNITS/3 ML VIAL SQ SCH ×2 (09:17→12:49)
[2019-09-18] MEDS: Aspirin Enteric Coated 325 MG Tablet PO SCH (09:17)
[2019-09-18 12:30] VITALS: BP 118/64
== END 2019-09-18 13:55 | DRG 481 ==
LOC: 3NENU → SUATTDRO 18:42
PROVIDERS: ADMIT Internal Medicine; ATTEND Internal Medicine